=== PATIENT | male | born 1970 | race Hispanic/Latino ===

== ENCOUNTER 2016-06-20 01:34 | Inpatient (IN) | payer MEDICARE, MEDICAID ==
[2016-06-20] VITALS (11 sets, daily range): BP systolic 116–137; BP diastolic 69–91; PULSE 80–133; RESP 10–25; O2SAT 94–98
[~2016-06-20] VITALS: Ht 167.6 cm; Wt 96.6 kg
[~2016-06-20 01:34] MED LIST: AMIT100T2 PO; CITA40TA PO; DACL60TA PO; FURO40TA4 PO; HYDR-3797 PO; INSU100I13 SUBQ; LACT10SO27 PO; LEVO25TA5 PO; NOV100I SUBQ; OMEP20CA11 PO; OXYC10TA69 PO; PREG150C PO; PROP20TA5 PO; RIFA550T3 PO; SOFO400T PO; SPIR100T3 PO; TRIA15OI9 TRANSDERM
--- NOTE | 2016-06-20 01:44 | ED.REPORT ---
HPI-Trauma Multiple Date of Service Jun 20, 2016 ED Provider: Dr. Junito Olivo M.D. A 45 year old male with an extensive medical history including cirrhosis, hepatitis C, substance abuse, hypertension, and diabetes presents to the ED via wheel chair accompanied by his mother with head trauma after a fall down six stairs just prior to arrival. His mother was sleeping when she heard a loud crash and found him unconscious face down at the bottom of the stairs. On arrival in the room the patient is in a C-collar and minimally responsive. Nursing Notes Stated Complaint: FALL INJURY/ HEAD PAIN Nursing Notes Reviewed: Yes Allergies: Coded Allergies: No Known Allergies (Verified , 06/20/16) Scheduled Amitriptyline (Amitriptyline) 100 Mg Tablet 100 MG PO HS Furosemide (Furosemide) 40 Mg Tablet 40 MG PO DAILY Insulin Glargine (Lantus U100 Solostar Insulin Pen) 100 Unit/1 Ml Insuln.pen 30 UNIT SUBQ QAM Insulin Glargine (Lantus U100 Solostar Insulin Pen) 100 Unit/1 Ml Insuln.pen 28 UNIT SUBQ HS Lactulose (Lactulose) 10 Gm/15 Ml Solution 65 ML PO QID Levothyroxine (Levothyroxine) 25 Mcg Tablet 25 MCG PO DAILY Omeprazole (Omeprazole) 20 Mg Capsule.dr 20 MG PO DAILY Pregabalin (Lyrica) 150 Mg Capsule 150 MG PO HS Propranolol HCl (Propranolol HCl) 20 Mg Tablet 20 MG PO QAM Rifaximin (Xifaxan) 550 Mg Tablet 550 MG PO BID Spironolactone (Spironolactone) 100 Mg Tablet 100 MG PO QAM Scheduled PRN Citalopram Hydrobromide (Celexa) 40 Mg Tablet 40 MG PO DAILY PRN PRN For Anxiety Daclatasvir Dihydrochloride (Daklinza) 60 Mg Tablet 60 MG PO DAILY PRN PRN For Headache Hydroxyzine Pamoate (HydrOXYzine Pamoate) 25 Mg Capsule 25 MG PO QID PRN PRN For Itching Insulin Aspart (NovoLOG U100 Insulin Vial) 100 Unit/Ml Mdv 0-13 UNITS SUBQ TIDWM PRN PRN sliding scale Oxycodone ER (Oxycontin) 10 Mg Tab.er.12h 10 MG PO Q12 PRN PRN For Pain Sofosbuvir (Sovaldi) 400 Mg Tablet 400 MG PO DAILY PRN PRN For Headache Triamcinolone Acetonide (Triamcinolone Acetonide Ointment) 15 Gm Oint...g. 1 APPLIC TRANSDERM BID PRN PRN rash General Time Seen by Provider: 01:43 Chief Complaint Head pain/injury Hx Obtained From: Spouse Unable to Obtain Hx: Patient condition, Mental status Arrived By: Wheelchair Onset Occurred: Just prior to arrival Symptom Duration: Since onset Caused by: Fall down stairs Context: Occurred at: Home Associated with: Reports: Loss of consciousness... Pertinent Negative: Relieved by nothing Related History: Reports: Alcohol abuse, Drug abuse Immunizations: Unknown Recent Healthcare: No recent doctor visit Similar Sx Previous: No Past Medical History Past Medical History Cirrhosis of liver due to alcoholism Chronic hepatitis C---failed Harvoni currently on second line treatment Chronic encephalopathy Portal hypertensive gastropathy Ascites Diabetes mellitus-insulin dependent Esophageal varices Substance abuse-Meth Alcohol abuse Hypertension Hypothyroidism Thrombocytopenia Gastroesophageal reflux disease Retinal edema Chronic pain Lumbar spinal stenosis Allergies Depression Anxiety Disorder Circumcision Redundant prepuce and phimosis Balanoposthitis Past Surgical History Right hand surgery Family History Father-DM and [place] Smoking History Current Some Day Smoker Social History Alcohol Use: Denies alcohol use Other Social History: Good social support, Lives with parents Ambulatory Status Independent Review of Systems Unable to Obtain ROS Patient condition, Mental status Physical Exam Physical Exam Notes: Initial Vital Signs Vital Signs (First) Date Time Temp Pulse Resp B/P Pulse Ox O2 Delivery O2 Flow Rate FiO2 06/20/16 02:00 36.4 80 11 120/69 97 Room Air Initial VS: Reviewed Alertness: Positive: Responds to verb stimuli, Somnolent Head / Eyes: Normocephalic Trauma - General: Positive: Hematoma (Right frontal hairline) Neck: Atraumatic, Non-tender Trauma - Neck Specific: Positive: Immobilized - C Collar Respiratory / Chest: Breath sounds NL, Breath sounds = bilat, No respiratory distress Cardiovascular: Heart rate NL, Regular rhythm, Heart sounds NL Abdomen: Soft, Non-tender Trauma - General: Positive: Ecchymosis (Across abdomen, insulin injection sites ) Obese Mental Status: Positive: Responds to verbal stim, Somnolent ENT: Airway patent, Mucous membranes moist Trauma - General: Positive: Hematoma (Right lateral portion of mouth) Upper Extremity / MS: Neurologic intact, Vascular intact Trauma / Burn / Environmental: Positive: Ecchymosis (Over extensor of right upper extremity) Lower Extremity / Pelvis / MS: Neurologic intact, Vascular intact Bilateral chronic edema Skin: Warm, Dry Excoriations bilateral lower extremities Interpretation & Diagnostics Lab Results Interpretation Result Diagram: 06/20/16 0200 06/20/16 0555 Test 06/20/16 02:00 White Blood Count 4.5th/mm3 (3.8-10.1) Red Blood Count 4.84mil/mm3 (4.40-5.80) Hemoglobin 15.0g/dL (13.8-17.2) Hematocrit 41.8% (41.0-50.0) Mean Corpuscular Volume 86.4fL (81-100) Mean Corpuscular Hemoglobin 31.0pg (27.0-35.0) Mean Corpuscular Hemoglobin Concent 35.9% (32.0-37.0) Red Cell Distribution Width 13.7% (12.3-15.4) Platelet Count 41bil/L (150-400) Neutrophils (%) (Auto) 70.3% (40-74) Lymphocytes (%) (Auto) 16.9% (14-46) Monocytes (%) (Auto) 9.3% (4-12) Eosinophils (%) (Auto) 2.4% (0-5) Basophils (%) (Auto) 0.4% (0-3) Prothrombin Time 33.0sec (8.1-12.5) Prothromb Time International Ratio 3.02ratio Activated Partial Thromboplast Time 43.0sec (22.8-33.0) Magnesium Level 1.6mg/dL (1.6-2.6) Troponin T 0.010ug/L (0.0-0.011) Alcohol, Quantitative < 10mg/dL (0-10) ECG Interpretation ECG Interpretation: Sinus rhythm rate 82 Prolonged QT interval NSSTTW flattening diffusely Time: 02:35 Interpreted by: ED physician X-Ray Chest Interpretation Chest Xray Interpretation: Atelectasis at left base No pneumothorax No hemothorax Poor inspiration View: Portable, 1 view Interpretation / Wet Read by: Wet read ED physician CT Head Interpretation CONCLUSION: Right lateral frontal scalp hematoma. Transmitted to ED by Tulio Ibarra M.D. at 06/20/2016 - 3:27:16 AM PST Study: Head CT no contrast Interpretation / Wet Read by: Interpret - Radiologist CT Abd / Pelvis Interpretation IMPRESSION: Moderate displaced fractures posterior right eighth ninth and 10th ribs. Bilateral lung base subsegmental atelectasis. Cirrhosis with splenomegaly associated with gastric/splenic varices. Mild right nephrolithiasis. 2 punctate densities noted within the gastric antrum possibly representing ingested foreign bodies. Transmitted to ED by Tulio Ibarra M.D. at 06/20/2016 - 3:26:53 AM PST Study type: Abdominal CT no contrast Interpretation / Wet Read by: Interpret - Radiologist CT C-Spine Interpretation CONCLUSION: Normal CT of the cervical spine. Transmitted to ED by Tulio Ibarra M.D. at 06/20/2016 - 3:27:06 AM PST Study type: CT no contrast Interpretation / Wet Read by: Interpret - Radiologist Re-Eval/Medical Decision Med Decision/Clinical Course Med Decision/Clinical Course: 45-year-old cirrhotic patient presents after a fall with presumptive loss of consciousness, whether pre-or post is unclear. He arrives confused and minimally Verbal, and becomes combative after brief observation period. ammonia is again grossly elevated, double his baseline which is always elevated. CT is negative, but his underlying liver disease leaves him anticoagulated with an INR of three. He will require repeat scanning to exclude slow bleeding. Chest x-ray shows no pneumothorax or hemothorax, but CT of the abdomen shows contiguous rib fractures on the right in the eighth ninth and 10th ribs. He is admitted now for further evaluation and management, including bowel cleansing, repeat scan, serial neuro exam, and incentive spirometry for his rib fractures. Re-Evaluation/Progress #1: Time of Eval: 02:16 Patient Status: Condition improved Re-Evaluation/Progress Note: Patient is more awake but agitated and confused. Re-Evaluation/Progress #2: Time of Eval: 02:46 Patient Status: Condition unchanged Re-Evaluation/Progress Note: Patient rechecked. Re-Evaluation/Progress #3: Time of Eval: 03:51 Patient Status: Condition unchanged Re-Evaluation/Progress Note: Discussed with patient and his CT and lab results, diagnosis, and plan for admit. Patient and his agree with plan for care and all questions were addressed. Consultation : Referral / Consult Name: Jaleesa Delgado MD Consulted With: Hospitalist Call Returned at: 04:20 Hand Cloth Cutter: Agrees with eval, Agrees with plan, Accepts admit Counseled Regarding: Diagnosis, Lab results, Need for admission Discharge & Departure Shift Change Sign-Out Response to Therapy: Improved Impression: Primary Impression: Blunt head injury Encounter type: initial encounter Qualified Code: S09.8XXA - Other specified injuries of head, initial encounter Additional Impressions: Fracture of ribs, three Encounter type: initial encounter Fracture type: closed Laterality: right Qualified Code: S22.41XA - Multiple fractures of ribs, right side, initial encounter for closed fracture Cirrhosis Hepatic cirrhosis type: alcoholic cirrhosis Ascites presence: with ascites Qualified Code: K70.31 - Alcoholic cirrhosis of liver with ascites Fall down stairs Encounter type: initial encounter Qualified Code: W10.8XXA - Fall (on) (from ) other stairs and steps, initial encounter Increased ammonia level Disposition: ADMITTED TO HOSPITAL Discharge Condition All VS Reviewed: Yes Condition: Stable Referrals: Cara Mohr DO (PCP) Scribe Attestation Portions of this note were transcribed by Karen Avila. I, Dr. Olivo, personally performed the history, physical exam, and medical decision-making; I reviewed and confirmed the accuracy of the information in the transcribed note. Signed by: Danna Candelario, 06/20/2016, 05:21 copies to: Cara Mohr DO Head CT Imaging Patient Presents WITH: Loss of Conciousness Non Contrast CT Indicated For: Trauma - Clavicle & Up WITH Loss of Conciousness RF Statements: Risk factors reviewed Junito Olivo MD Jun 20, 2016 01:43 KAREN AVILA Jun 20, 2016 02:30 Consulted With: Hospitalist Call Returned at: 04:20 Hand Cloth Cutter: Agrees with eval, Agrees with plan, Accepts admit Counseled Regarding: Diagnosis, Lab results, Need for admission Discharge & Departure Impression: Primary Impression: Blunt head injury Encounter type: initial encounter Qualified Code: S09.8XXA - Other specified injuries of head, initial encounter Additional Impressions: Fracture of ribs, three Encounter type: initial encounter Fracture type: closed Laterality: right Qualified Code: S22.41XA - Multiple fractures of ribs, right side, initial encounter for closed fracture Cirrhosis Hepatic cirrhosis type: alcoholic cirrhosis Ascites presence: with ascites Qualified Code: K70.31 - Alcoholic cirrhosis of liver with ascites Fall down stairs Encounter type: initial encounter Qualified Code: W10.8XXA - Fall (on) (from ) other stairs and steps, initial encounter Disposition: ADMITTED TO HOSPITAL Discharge Condition All VS Reviewed: Yes Condition: Stable Referrals: Cara Mohr DO (PCP) Pradeepibanderson Attestation Portions of this note were transcribed by Karen Avila. I, Dr. Olivo, personally performed the history, physical exam, and medical decision-making; I reviewed and confirmed the accuracy of the information in the transcribed note. Signed by: Danna Candelario, 06/20/2016, 05:21 copies to: Cara Mohr DO Head CT Imaging Patient Presents WITH: Loss of Conciousness Non Contrast CT Indicated For: Trauma - Clavicle & Up WITH Loss of Conciousness RF Statements: Risk factors reviewed Junito Olivo MD Jun 20, 2016 01:43 KAREN AVILA Jun 20, 2016 02:30
[2016-06-20] MEDS ORDERED: Ketamine 10 mg/mL 20 mL Inj ONE (02:04)
[2016-06-20] MEDS ORDERED: Ketamine 10 mg/mL 20 mL Inj IV ONE ×2 (02:10→04:10)
[2016-06-20 02:14] LABS: BASOPHILS % (AUTO) 0.4 % (0-3); EOSINOPHILS % (AUTO) 2.4 % (0-5); MONOCYTES % (AUTO) 9.3 % (4-12); Mean Corpuscular Volume 86.4 fL (81-100); NEUTROPHILS % (AUTO) 70.3 % (40-74); Platelet Count 41 bil/L (150-400)
[2016-06-20 02:30] LABS: INR 3.02 ratio
[2016-06-20 02:45] LABS: TROPONIN T 0.01 ug/L (0.0-0.011)
[2016-06-20 02:48] LABS: Magnesium 1.6 mg/dL (1.6-2.6)
[2016-06-20] MEDS ORDERED: Phytonadione (Adult) 10 MG in Dextrose 5%-Pha MIX 50 ML IV ONE (04:20)
[2016-06-20] MEDS ORDERED: PHYTONADIONE IV ONE (04:31)
[2016-06-20] MEDS ORDERED: DEXTROSE 5% IV ONE (04:31)
[2016-06-20] MEDS ORDERED: Ondansetron 2 mg/mL 2 mL Inj IVPUSH PRN (04:45)
--- NOTE | 2016-06-20 05:03 | PCM.HPMED ---
Subjective Date of Service Jun 20, 2016 Primary Provider: Admitting Physician: Jaleesa Delgado MD Primary Care Physician: Cara Mohr DO Attending Physician: Jaleesa Delgado MD Admit Status: From the Emergency Department, Full Admit, [facility] Telemetry Chief Complaint: Fell down flight of stairs History of Present Illness: This is a 45-year-old male who has a history of end-stage liver disease secondary to hepatitis C and EtOH abuse. He also has a history of chronic hepatic encephalopathy. Tonight fell down a flight of stairs and was brought in. He does have a abrasion on his head and did have CT scanning of head chest abdomen and pelvis with the significance of right sided 8,9 and 10 rib fractures. He also was found to have significant elevated ammonia level. Is not clear whether he has been taking his medications. I am unable to get history from him and there is no one else at bedside. He has a did have a CT of C-spine which was negative. As mentioned other history is unobtainable. Review of Systems: Unobtainable Allergies Coded Allergies: No Known Allergies (Verified , 06/20/16) Home Medications Scheduled Amitriptyline (Amitriptyline) 100 Mg Tablet 100 MG PO HS Furosemide (Furosemide) 40 Mg Tablet 40 MG PO DAILY Insulin Glargine (Lantus U100 Solostar Insulin Pen) 100 Unit/1 Ml Insuln.pen 30 UNIT SUBQ QAM Insulin Glargine (Lantus U100 Solostar Insulin Pen) 100 Unit/1 Ml Insuln.pen 28 UNIT SUBQ HS Lactulose (Lactulose) 10 Gm/15 Ml Solution 65 ML PO QID Levothyroxine (Levothyroxine) 25 Mcg Tablet 25 MCG PO DAILY Omeprazole (Omeprazole) 20 Mg Capsule.dr 20 MG PO DAILY Pregabalin (Lyrica) 150 Mg Capsule 150 MG PO HS Propranolol HCl (Propranolol HCl) 20 Mg Tablet 20 MG PO QAM Rifaximin (Xifaxan) 550 Mg Tablet 550 MG PO BID Spironolactone (Spironolactone) 100 Mg Tablet 100 MG PO QAM Scheduled PRN Citalopram Hydrobromide (Celexa) 40 Mg Tablet 40 MG PO DAILY PRN PRN For Anxiety Daclatasvir Dihydrochloride (Daklinza) 60 Mg Tablet 60 MG PO DAILY PRN PRN For Headache Hydroxyzine Pamoate (HydrOXYzine Pamoate) 25 Mg Capsule 25 MG PO QID PRN PRN For Itching Insulin Aspart (NovoLOG U100 Insulin Vial) 100 Unit/Ml Mdv 0-13 UNITS SUBQ TIDWM PRN PRN sliding scale Oxycodone ER (Oxycontin) 10 Mg Tab.er.12h 10 MG PO Q12 PRN PRN For Pain Sofosbuvir (Sovaldi) 400 Mg Tablet 400 MG PO DAILY PRN PRN For Headache Triamcinolone Acetonide (Triamcinolone Acetonide Ointment) 15 Gm Oint...g. 1 APPLIC TRANSDERM BID PRN PRN rash PMH Past Medical History Cirrhosis of liver due to alcoholism Chronic hepatitis C---failed Harvoni currently on second line treatment Chronic encephalopathy Portal hypertensive gastropathy Ascites Diabetes mellitus-insulin dependent Esophageal varices Substance abuse-Meth Alcohol abuse Hypertension Hypothyroidism Thrombocytopenia Gastroesophageal reflux disease Retinal edema Chronic pain Lumbar spinal stenosis Allergies Depression Anxiety Disorder Circumcision Redundant prepuce and phimosis Balanoposthitis Chronic pain Past Surgical History Right hand Family History Unobtainable Social History Hx Alcohol Use: Yes (unable to ask if pt is currently drinking) Hx Substance Use: Yes (history of meth use, unable to ask if currently using) Hx Tobacco Use: Yes (unable to ask about amount of smoking) Smoking Status: Current Some Day Smoker Living Arrangement: with Family Exam Vital Signs Vital Sign - Last Date Time Temp Pulse Resp B/P Pulse Ox O2 Delivery O2 Flow Rate FiO2 06/20/16 03:30 83 10 126/70 98 Room Air 06/20/16 02:00 36.4 Exam Constitutional: Drowsy difficult to arouse as was given ketamine in the emergency room Head: Does have hematoma in the lateral portion of his mouth and right frontal hairline hematoma Eyes: PERRLA DC EOMI Neck: No adenopathy Mouth: No lesions Neck no adenopathy Chest clear to auscultation Cor: Regular rate and rhythm S1-S2 Abdomen soft nontender bowel sounds present Extremities exam: Trace bilateral pedal edema with chronic venous stasis changes skin no rashes Psych unable to assess Neuro: Arouses to pain moves all extremities equally Lab and Diagnostics Labs Laboratory Tests 72 Hours Test 06/20/16 02:00 White Blood Count 4.5th/mm3 (3.8-10.1) Red Blood Count 4.84mil/mm3 (4.40-5.80) Hemoglobin 15.0g/dL (13.8-17.2) Hematocrit 41.8% (41.0-50.0) Mean Corpuscular Volume 86.4fL (81-100) Mean Corpuscular Hemoglobin 31.0pg (27.0-35.0) Mean Corpuscular Hemoglobin Concent 35.9% (32.0-37.0) Red Cell Distribution Width 13.7% (12.3-15.4) Platelet Count 41bil/L (150-400) Neutrophils (%) (Auto) 70.3% (40-74) Lymphocytes (%) (Auto) 16.9% (14-46) Monocytes (%) (Auto) 9.3% (4-12) Eosinophils (%) (Auto) 2.4% (0-5) Basophils (%) (Auto) 0.4% (0-3) Prothrombin Time 33.0sec (8.1-12.5) Prothromb Time International Ratio 3.02ratio Activated Partial Thromboplast Time 43.0sec (22.8-33.0) Sodium Level 137mEq/L (134-144) Potassium Level 3.9mEq/L (3.5-5.2) Chloride Level 102mEq/L (97-108) Carbon Dioxide Level 25mmol/L (18-29) Blood Urea Nitrogen 7mg/dL (6-24) Creatinine 0.34mg/dL (0.76-1.27) Estimat Glomerular Filtration Rate 298mL/min (>59) Glucose Level 179mg/dL (60-99) Calcium Level 8.7mg/dL (8.5-10.1) Magnesium Level 1.6mg/dL (1.6-2.6) Total Bilirubin 3.3mg/dL (0.0-1.2) Aspartate Amino Transf (AST/SGOT) 53U/L (0-50) Alanine Aminotransferase (ALT/SGPT) 56U/L (0-44) Alkaline Phosphatase 186U/L (25-150) Ammonia 323ug/dL (18-53) Troponin T 0.010ug/L (0.0-0.011) Total Protein 6.7g/dL (6.4-8.4) Albumin 3.3g/dL (3.4-5.0) Alcohol, Quantitative < 10mg/dL (0-10) UA micral urine culture if indicated and urine drug screen is pending at the time this dictation Result Diagram: 06/20/16 0200 06/20/16199 X-Rays, CTs and MRIs Radiology readings are pending for CT of head neck chest abdomen pelvis 12-lead ECG Sinus at a rate of 82 QTC is 5.Q in 3 and aVF Assessment & Plan # Fall down flight of stairs with multiple rib fractures, acute, present on admission Repeat CT of head without contrast in [address] Repeat chest x-ray if his respiratory symptoms Neuro checks every 4 as did have head trauma # Acute on chronic hepatic encephalopathy, present on admission Patient is unable to take by mouth now so we will give lactulose enemas every 4 hours and check every 8 hour ammonia levels # Elevated PT PTT, present on admission Secondary to hepatic cirrhosis Patient to get vitamin K in the ER # End stage liver disease, present on admission, chronic Further recommendations per primary care provider and/or gastroenterology specialist # History of methamphetamine and alcohol abuse Alcohol level checked and is 0. It is not clear whether he is continuing to drink alcohol Check urine drug screen # DVT prophylaxis SCDs Anticoagulation is contraindicated given recent fall and the fact that he has elevated PT PTT secondary to end-stage liver disease # CODE STATUS Per previous record patient is full code Pain Evaluation: Adequate Pain Control VTE Prophylaxis Indicated: Contraindicated Resuscitation Status: CPR: Attempt Resuscitation Time spent Time spent 60 minutes Jaleesa Delgado MD Jun 20, 2016 05:03
[2016-06-20] MEDS: 0.9% Sodium Chloride 1,000 ML IV SCH ×2 (05:55→15:46)
--- NOTE | 2016-06-20 06:07 | NUR ---
ADMIT Pt brought onto floor via gurney at 0530. Report received from Thea Hernandez RN in ED. Unable to oriented pt due to condition. Will have dayshift follow up, no family currently available. No belongings with pt. Pt unable to answer questions and drops in and out of sleep. Pt has clutching and moaning pain but unable to categorize level. Other than pain, no apparent s/sx of distress. Continuing to monitor.
[2016-06-20] MEDS: Lactulose 10 Gm/15 mL 473 mL Solution RECTAL SCH ×5 (06:18→21:53)
[2016-06-20] MEDS ORDERED: HYDROmorphone 1 mg/mL Inj IVPUSH PRN (07:40)
--- NOTE | 2016-06-20 08:35 | DRSVH ---
PROCEDURE: CT CERVICAL SPINE WITHOUT CONTRAST ([id number]) INDICATIONS: stair fall, cirrhosis TECHNIQUE: Noncontrast 3 mm thick sections acquired from the skull base to the T4 level. Sagittal and coronal r eformats were then constructed. For radiation dose reduction, the following was used: automated exp osure control, adjustment of mA and/or kV according to patient size. COMPARISON: [facility], CT, C-SPINE W/O CONTRAST, 01/07/2014, 20:08. FINDINGS: Image quality: Excellent. Bones: No fractures or dislocations. Visualized superior ribs are intact. Soft tissues: Prevertebral soft tissues are normal in thickness. No paravertebral hematomas. No ap ical pneumothoraces. IMPRESSION: No visualized fracture or dislocation. Dictated by: Lynette Palma M.D. on 06/20/2016 at 8:33 Approved by: Lynette Palma M.D. on 06/20/2016 at 8:33
--- NOTE | 2016-06-20 08:37 | DRSVH ---
PROCEDURE: CT BRAIN WITHOUT CONTRAST ([id number]) INDICATIONS: stair fall, cirrhosis TECHNIQUE: Noncontrast 4.5 mm thick angled axial sections acquired from the foramen magnum to the vertex, with c oronal reformats. COMPARISON: [facility], CT, CT BRAIN WO CON, 07/08/2015, 16:16. FINDINGS: Image quality: Excellent. CSF spaces: Basal cisterns are patent. No extra-axial fluid collections. Ventricles are normal in size and shape. Brain: No midline shift. No intracranial masses or hemorrhage. Nash-white matter interface is norm al. Skull and face: Calvarium and visualized facial bones are intact, without suspicious lesions. Right frontal scalp hematoma. Sinuses: Visualized sinuses and mastoids are clear. IMPRESSION: 1. No acute intracranial process. 2. Right frontal scalp hematoma. Dictated by: Lynette Palma M.D. on 06/20/2016 at 8:35 Approved by: Lynette Palma M.D. on 06/20/2016 at 8:35
--- NOTE | 2016-06-20 08:41 | DRSVH ---
PROCEDURE: X-RAY CHEST ONE VIEW, PORTABLE ([id number]) INDICATIONS: fall from stairs TECHNIQUE: One view of the chest was acquired. COMPARISON: [facility], CR, XR CHEST 1VW (PORTABLE), 07/08/2015, 14:26. [facility], CR, CHEST 1VW (PORTABLE), 01/07/2014, 18:48. [facility], CR, CHEST 1VW (PORTABLE) , 08/20/2013, 11:12. FINDINGS: Surgical changes and devices: None. Lungs and pleura: No pleural effusions or pneumothorax. No change in left basilar scarring. Mediastinum: Mediastinal contours appear normal. Heart size is normal. Bones and chest wall: No suspicious bony lesions. Overlying soft tissues appear unremarkable. IMPRESSION: No acute process. Concordant with preliminary interpretation. Dictated by: Jesse Cao M.D. on 06/20/2016 at 8:38 Approved by: Jesse Cao M.D. on 06/20/2016 at 8:38
--- NOTE | 2016-06-20 08:48 | DRSVH ---
PROCEDURE: CT ABDOMEN AND PELVIS WITH CONTRAST TRAUMA (PNL [id number]) INDICATIONS: stair fall, cirrhosis TECHNIQUE: After the administration of intravenous contrast, 5 mm thick sections acquired from the diaphragms to the symphysis. 5 mm thick coronal and sagittal reformats were acquired. Optional 10-minute delayed imaging may be performed from the kidneys to the bladder. For radiation dose reduction, the followi ng was used: automated exposure control, adjustment of mA and/or kV according to patient size. COMPARISON: [facility], CT, CT ABD PELVIS W CON, 05/16/2016, 0:39. [facility], CT, ABD/PELVIS W/CON TRAUMA (PNL), 01/07/2014, 20:08. FINDINGS: Image quality: Excellent. ABDOMEN: Lung bases: Bibasilar atelectasis. Heart size is normal. No pericardial effusion. Right 8th, 9th and 10th rib fractures are present. No basal pleural effusions or pneumothorax. Solid organs: Liver is shrunken and cirrhotic in appearance. The spleen is enlarged. Splenic and ga stric varices are present. Gallbladder is unremarkable. Biliary system is non-dilated. Pancreas en hances normally, without transection. No adrenal hematomas. Both kidneys enhance normally, without hydronephrosis or lacerations. Nonobstructing right punctate renal calculus. Peritoneum and bowel: No free fluid or air. Unenhanced bowel loops demonstrate normal wall thicknes s and caliber. Nodes and vessels: No retroperitoneal or mesenteric adenopathy. Aorta and inferior vena cava are no rmal in size and enhancement. Miscellaneous: No ventral hernias. PELVIS: Genitourinary: Bladder wall thickness is normal. Miscellaneous: No inguinal hernias or adenopathy. Bones: Pelvic ring and hip joints appear intact. No vertebral compression fractures. IMPRESSION: 1. Right posterior right 8th-10th rib fractures. 2. Cirrhosis with splenomegaly and varices consistent with portal venous hypertension. 3. Nonobstructing right nephrolithasis. Dictated by: Lynette Palma M.D. on 06/20/2016 at 8:46 Approved by: Lynette Palma M.D. on 06/20/2016 at 8:46
[2016-06-20] MEDS: HYDROmorphone 1 mg/mL Inj IVPUSH PRN ×3 (12:27→21:03)
[2016-06-20 14:07] LABS: APPEARANCE,URINE HAZY (CLEAR,HAZY); COLOR,URINE DARK YELLOW (YELLOW); OCCULT BLOOD,URINE LARGE (NEGATIVE); PH,URINE 6.5 (5.0-8.0)
--- NOTE | 2016-06-20 14:58 | DRSVH ---
PROCEDURE: CT BRAIN WITHOUT CONTRAST ([id number]) INDICATIONS: head trauma TECHNIQUE: Noncontrast 4.5 mm thick angled axial sections acquired from the foramen magnum to the vertex, with c oronal reformats. COMPARISON: [facility], CT, CT BRAIN WO CON, 06/20/2016, 2:54. FINDINGS: Image quality: This is a markedly limited study due to patient motion artifact. CSF spaces: Basal cisterns are patent. No extra-axial fluid collections. Ventricles are normal in size and shape. Brain: No midline shift. No intracranial masses or hemorrhage. Nash-white matter interface is norm al. Skull and face: Soft tissue swelling and subgaleal hematoma overlies the right frontal bone. Calvari um and visualized facial bones are intact, without suspicious lesions. Sinuses: Visualized sinuses and mastoids are clear. IMPRESSION: Markedly limited study. No acute intracranial findings. Right frontal subgaleal hematoma. Dictated by: Caro Ivory M.D. on 06/20/2016 at 14:56 Approved by: Caro Ivory M.D. on 06/20/2016 at 14:56
[2016-06-20] MEDS ORDERED: LORazepam 1 mg Tablet PO PRN (15:30)
--- NOTE | 2016-06-20 15:46 | NUR ---
Social Work-initial assessment: Data:See initial assessment. Pt is a 45 y/o male who was admitted on 06/20/16 for GLF per H&P. Pt's insurance is [employer] and [employer] and PCP is Dolores Mohr MD. EMR reviewed. CARTER met with pt and mother Yuli [phone] at bedside to discuss discharge planning, SW role explained. Pt resides at home with his mother who provides care for pt home. Pt has no HH or SNF history. Pt has no fpc care insurance and no VA benefits. SW discussed DPOA/Advanced directive, mother states they have completed this, SW encouraged a copy to be brought into the hospital. Pt's mother is RUDI caregiver and his CM is Felisa Ramachandran, updated clinicals faxed. Pt has 145 hours a month. Pt does not drive and uses a fww at baseline. Pt's mother does not anticipate any discharge needs. Pt's family to provide transport home. SW provided phone number and plan on white board in room. SW will continue to follow. Assessment:Pt who is independent at baseline. Plan:Pt to discharge home when medically stable via POV. Pt's mother is RUDI caregiver. No anticipated discharge needs. SW will continue to follow if needs arise. LATA Mendes Addendum: 06/20/16 at 1601 by JIAN ARNOLD SS Amended: Links added.
--- NOTE | 2016-06-20 17:16 | NUR ---
Lactulose Patient has rectal lactulose Q4 hours. Lactulose was administered late due to pharmacy needing to obtain from another hospital. Patient has had several Large loose stools. Patient was not able to talk but a word or two in the morning and this afternoon patient can speak short sentences. Patient is more alert and talkative this afternoon and continues to be in pain.
--- NOTE | 2016-06-20 22:00 | NUR ---
Lala Catheter: P: Pt unable to void per urinal. I: Bladder scan performed indicating greater than [address] Naylor notified and new order obtained to place lala catheter. E: Lala catheter placed without complication. Deb colored urine emptied.
[2016-06-21] VITALS (10 sets, daily range): BP systolic 111–153; BP diastolic 72–85; PULSE 101–131; RESP 18–24; O2SAT 94–96
[2016-06-21] MEDS: Lactulose 10 Gm/15 mL 473 mL Solution RECTAL SCH ×6 (00:55→21:45)
[2016-06-21] MEDS ORDERED: Glucose 40% Oral Gel 15 Gm Tube PO PRN (01:25)
[2016-06-21] MEDS ORDERED: Labetalol 5 mg/mL 4 mL Inj IVPUSH ONE (01:35)
--- NOTE | 2016-06-21 02:00 | NUR ---
Fecal Management System: Due to frequent amount of lactulose enemas and stooling. A Fecal Management System was ordered per Dr. Naylor and placed to protect the pt's skin integrity; 40 mls of water was used to inflate the FMS balloon.
[2016-06-21] MEDS: Insulin GLARgine 100 Unit/mL Syringe SUBQ SCH ×2 (02:26→22:06)
[2016-06-21] MEDS: Insulin LISPRO 300 Unit/3 mL Inj SUBQ SCH ×5 (02:27→22:07)
[2016-06-21] MEDS: 0.9% Sodium Chloride 1,000 ML IV SCH ×3 (02:30→22:07)
--- NOTE | 2016-06-21 02:30 | NUR ---
Hyperglycemia: P: Initial blood glucose checked last night was 276. I: Dr. Naylor notified and new orders obtained for sliding scale lispro and scheduled Lantus. E: Doses administered. Will cont. to monitor.
--- NOTE | 2016-06-21 03:00 | NUR ---
Tachycardia: P: HR has remained in the 130s after pt calmed. I: Dr. Naylor notified. New ordered obtained for 20 mg of IV labetalol. E: IV labetalol effective in lowering pt's HR into the low 100s/ST.
[2016-06-21] MEDS: HYDROmorphone 1 mg/mL Inj IVPUSH PRN ×2 (07:38→13:10)
[2016-06-21 08:09] LABS: BASOPHILS % (AUTO) 0.1 % (0-3); EOSINOPHILS % (AUTO) 0 % (0-5); MONOCYTES % (AUTO) 9.7 % (4-12); Mean Corpuscular Volume 87.6 fL (81-100); NEUTROPHILS % (AUTO) 84.8 % (40-74)
[2016-06-21 08:16] LABS: Platelet Count 35 bil/L (150-400)
--- NOTE | 2016-06-21 08:19 | NUR ---
Critical Lab Cassie called with PLT 35, Dr Curtis paged at [phone], pending.
--- NOTE | 2016-06-21 09:49 | PCM.PNMED ---
Subjective Date of Service Jun 20, 2016 Subjective Patient is deep asleep, per nurse he had just received Dilaudid 1mg IV. Prior to that he was able to communicate with the nurse and he told her he was in lots of pain. Exam Vital Signs Vital Sign - Last Date Time Temp Pulse Resp B/P Pulse Ox O2 Delivery O2 Flow Rate FiO2 06/20/16 06:33 36.5 91 18 121/77 94 Room Air Exam Constitutional: Drowsy difficult to arouse Head: Hematoma in the lateral portion of his mouth and right frontal hairline hematoma Eyes: PERRL Neck: No adenopathy Mouth: No lesions on Heart: Regular rate and rhythm S1-S2 Lungs: Clear to auscultation Abdomen: soft nontender bowel sounds present Extremities exam: Bilateral pitting edema with chronic venous stasis changes Psych: Unable to assess Neuro: Arouses to pain moves all extremities equally IVs and Medications IV Fluids IVF NS 100 mls/hr Lab and Diagnostics Result Diagram: 06/20/16 0200 06/20/16 0555 X-Rays, CTs and MRIs PROCEDURE: CT ABDOMEN AND PELVIS WITH CONTRAST TRAUMA (PNL [id number]) ABDOMEN: Lung bases: Bibasilar atelectasis. Heart size is normal. No pericardial effusion. Right 8th, 9th and 10th rib fractures are present. No basal pleural effusions or pneumothorax. Solid organs: Liver is shrunken and cirrhotic in appearance. The spleen is enlarged. Splenic and gastric varices are present. Gallbladder is unremarkable. Biliary system is non-dilated. Pancreas enhances normally, without transection. No adrenal hematomas. Both kidneys enhance normally, without hydronephrosis or lacerations. Nonobstructing right punctate renal calculus. Peritoneum and bowel: No free fluid or air. Unenhanced bowel loops demonstrate normal wall thickness and caliber. Nodes and vessels: No retroperitoneal or mesenteric adenopathy. Aorta and inferior vena cava are normal in size and enhancement. Miscellaneous: No ventral hernias. PELVIS: Genitourinary: Bladder wall thickness is normal. Miscellaneous: No inguinal hernias or adenopathy. Bones: Pelvic ring and hip joints appear intact. No vertebral compression fractures. IMPRESSION: 1. Right posterior right 8th-10th rib fractures. 2. Cirrhosis with splenomegaly and varices consistent with portal venous hypertension. 3. Nonobstructing right nephrolithasis. Dictated by: Lynette Palma M.D. on 06/20/2016 at 8:46 Approved by: Lynette Palma M.D. on 06/20/2016 at 8:46 PROCEDURE: CT BRAIN WITHOUT CONTRAST ([id number]) INDICATIONS: stair fall, cirrhosis IMPRESSION: 1. No acute intracranial process. 2. Right frontal scalp hematoma. Dictated by: Lynette Palma M.D. on 06/20/2016 at 8:35 Approved by: Lynette Palma M.D. on 06/20/2016 at 8:35 PROCEDURE: CT CERVICAL SPINE WITHOUT CONTRAST ([id number]) INDICATIONS: stair fall, cirrhosis Bones: No fractures or dislocations. Visualized superior ribs are intact. Soft tissues: Prevertebral soft tissues are normal in thickness. No paravertebral hematomas. No apical pneumothoraces. IMPRESSION: No visualized fracture or dislocation. Dictated by: Lynette Palma M.D. on 06/20/2016 at 8:33 Approved by: Lynette Palma M.D. on 06/20/2016 at 8:33 PROCEDURE: X-RAY CHEST ONE VIEW, PORTABLE ([id number]) INDICATIONS: fall from stairs FINDINGS: Surgical changes and devices: None. Lungs and pleura: No pleural effusions or pneumothorax. No change in left basilar scarring. Mediastinum: Mediastinal contours appear normal. Heart size is normal. Bones and chest wall: No suspicious bony lesions. Overlying soft tissues appear unremarkable. IMPRESSION: No acute process. Concordant with preliminary interpretation. Dictated by: Jesse Cao M.D. on 06/20/2016 at 8:38 Approved by: Jesse Cao M.D. on 06/20/2016 at 8:38 PROCEDURE: CT BRAIN WITHOUT CONTRAST ([id number]) INDICATIONS: head trauma FINDINGS: Image quality: This is a markedly limited study due to patient motion artifact. CSF spaces: Basal cisterns are patent. No extra-axial fluid collections. Ventricles are normal in size and shape. Brain: No midline shift. No intracranial masses or hemorrhage. Nash-white matter interface is normal. Skull and face: Soft tissue swelling and subgaleal hematoma overlies the right frontal bone. Calvarium and visualized facial bones are intact, without suspicious lesions. Sinuses: Visualized sinuses and mastoids are clear. IMPRESSION: Markedly limited study. No acute intracranial findings. Right frontal subgaleal hematoma. Dictated by: Caro Ivory M.D. on 06/20/2016 at 14:56 Approved by: Caro Ivory M.D. on 06/20/2016 at 14:56 12-lead ECG Sinus at a rate of 82 QTC is 5.Q in 3 and aVF Assessment & Plan # Fall down flight of stairs with multiple rib fractures, acute, present on admission - Repeat CT of head without contrast in [address] - Repeat chest x-ray if his respiratory symptoms - Neuro checks every 4 as did have head trauma # Acute on chronic hepatic encephalopathy, present on admission - Patient is unable to take by mouth now so we will give lactulose enemas every 4 hours and check every 8 hour ammonia levels # Elevated PT PTT, present on admission - Secondary to hepatic cirrhosis - Patient to get vitamin K in the ER # End stage liver disease, present on admission, chronic - Further recommendations per primary care provider and/or gastroenterology specialist # History of methamphetamine and alcohol abuse - Alcohol level checked and is 0. It is not clear whether he is continuing to drink alcohol - Check urine drug screen # DVT prophylaxis SCDs Anticoagulation is contraindicated given recent fall and the fact that he has elevated PT PTT secondary to end-stage liver disease # CODE STATUS Per previous record patient is full code Resuscitation Status: CPR: Attempt Resuscitation Attending Statement The patient was seen and examined together with Dr. Zuleta on 06/20/2016 and I agree with the history, exam and plan as outlined in the note above. CORINA ZULETA DO Jun 20, 2016 09:19 Eric Curtis MD Jun 21, 2016 09:49
--- NOTE | 2016-06-21 11:57 | NUR ---
Palliative Care Palliative Care received order from Dr Aliyah Rojo 06/20/16 (late in day) to assist with goals of care. Patient is a 45 year old male with history of end-stage liver disease secondary to hepatitis C and EtOH abuse. He also has a history of chronic hepatic encephalopathy. He was admitted 06/20/16 for care of multiple rib fractures after falling down a flight of stairs. Palliative Care MD saw patient for goals of care discussion in 08/2013. Patient lives with his mother. Ruchi Kalin (sister) [phone] Yuli Riley (mom) [phone] Palliative Care to follow. Rani Matute
--- NOTE | 2016-06-21 13:28 | PCM.PALLBR ---
Palliative Brief Note Date of Service Jun 21, 2016 . Palliative medicine consultation requested by medical team to assist patient and family and determination of goals of care. 45-year-old male with history of end-stage liver disease secondary to alcoholism and hepatitis C, admitted to hospital after fall with encephalopathy. Prior to visiting patient, reviewed his records in the EMR in detail and spoke with his bedside nurse. On my arrival in the room, patient is lying in bed, occasionally grimacing and moaning. Unable to provide information regarding localization of discomfort. Does not answer any questions appropriately or coherently. Vital signs noted. Skin is warm and dry. Head and neck exam without acute focal findings. Oropharynx with dry mucous membranes. Neck without masses or adenopathy. Lungs clear anterolaterally, heart sounds regular, abdomen rounded, soft, without peritoneal signs, rigidity or guarding. Possible mild bilateral lower quadrant tenderness though inconsistent. Lower extremities with +1 edema at ankles. Patient seen to move all extremities spontaneously. I called and spoke with his mother Yuli and then brother Carlos. Reviewed his past medical history as well as events leading up to this admission, his current diagnoses and treatment. In particular, talked about evidence of progressive hepatic failure with elevated ammonia, elevated INR, metabolic acidosis, etc. Patient's mother was tearful but his brother was [id number] and seemed to understand and accept the situation. Answered questions they both had and agreed to talk further when they return to the hospital. Did review advanced directive questions with them over the telephone. At this time patient remains full code/full aggressive treatment but the family will now begin to talk about changing that. In this regard, the patient's brother said that he would take the lead discussing these issues now at home with his mother and other family members, and then we would plan on reviewing them further when the family returns to the hospital either later today or tomorrow. Therefore, for now continue care per medical team with full CODE STATUS as before, but anticipate further discussions with the family as soon as possible regarding these issues. Full palliative note to follow once I am able to meet with the patient's family later today or tomorrow. Total 45 minutes spent thus far today with patient and family, greater than 50% [id number] or in conversation by phone as outlined above, reviewing medical status and discussing advanced directive issues. Chaz Constantino MD Jun 21, 2016 13:28
--- NOTE | 2016-06-21 15:05 | NUR ---
spiritual care: pt request relayed request for manager operations and procurement visit per family's request. Conversational prayer. Pt moaning in pain, agitated. Nursing staff and family trying to comfort.
[2016-06-21] MEDS ORDERED: MeTOProlol 1 mg/mL 5 mL Inj IVPUSH STA (15:53)
[2016-06-21] MEDS ORDERED: HYDROmorphone 0.5 mg/0.5 mL iSecure Syringe IVPUSH PRN (16:20)
--- NOTE | 2016-06-21 16:37 | PCM.PNMED ---
Subjective Date of Service Jun 21, 2016 Subjective Overnight: lala cath, fecal management system, Labetalol 20 mg IV push x 1, HR in 130's. Pt moaning in pain, agitated. Opens eyes sometime but does not converse. Exam Vital Signs Vital Sign - Last Date Time Temp Pulse Resp B/P Pulse Ox O2 Delivery O2 Flow Rate FiO2 06/21/16 13:03 36.9 113 24 153/85 96 Room Air Intake and Output 06/20/16 06/20/16 06/21/16 Cumulative From/Thru 15:00 23:00 07:00 06/20/16 04:02 - 06/21/16 06:15 Intake Total 1150 ml 2261 ml 3411 ml Output Total 700 ml 700 ml 1400 ml Balance 450 ml 1561 ml 2011 ml Intake Oral 0 ml 0 ml 0 ml IV Total 1150 ml 2261 ml 3411 ml Output Urine Total 700 ml 700 ml 1400 ml # Bowel Movements 4 4 Exam Constitutional: moaning, hard to arouse Head: Hematoma in the lateral portion of his mouth and right frontal hairline hematoma Eyes: PERRL Neck: No adenopathy Heart: Regular rate and rhythm S1-S2, tachycardic Lungs: Clear to auscultation Abdomen: soft nontender bowel sounds present : Lala cath and FMS in place Extremities exam: Bilateral pitting edema with chronic venous stasis changes Psych: Unable to assess Neuro: Arouses to pain moves all extremities equally IVs and Medications IV Fluids IVF NS @ 100 mls/hr Medications Reviewed: Medications were reviewed in detail (Rifaximin 550 mg PO bid ordered but pt is NPO at this time. Per pharmacy, there is no replacement, however it can be given through PEG tube ) Lab and Diagnostics Result Diagram: 06/21/16 0740 06/21/16 0740 X-Rays, CTs and MRIs PROCEDURE: CT ABDOMEN AND PELVIS WITH CONTRAST TRAUMA (PNL 0005) ABDOMEN: Lung bases: Bibasilar atelectasis. Heart size is normal. No pericardial effusion. Right 8th, 9th and 10th rib fractures are present. No basal pleural effusions or pneumothorax. Solid organs: Liver is shrunken and cirrhotic in appearance. The spleen is enlarged. Splenic and gastric varices are present. Gallbladder is unremarkable. Biliary system is non-dilated. Pancreas enhances normally, without transection. No adrenal hematomas. Both kidneys enhance normally, without hydronephrosis or lacerations. Nonobstructing right punctate renal calculus. Peritoneum and bowel: No free fluid or air. Unenhanced bowel loops demonstrate normal wall thickness and caliber. Nodes and vessels: No retroperitoneal or mesenteric adenopathy. Aorta and inferior vena cava are normal in size and enhancement. Miscellaneous: No ventral hernias. PELVIS: Genitourinary: Bladder wall thickness is normal. Miscellaneous: No inguinal hernias or adenopathy. Bones: Pelvic ring and hip joints appear intact. No vertebral compression fractures. IMPRESSION: 1. Right posterior right 8th-10th rib fractures. 2. Cirrhosis with splenomegaly and varices consistent with portal venous hypertension. 3. Nonobstructing right nephrolithasis. Dictated by: Lynette Palma M.D. on 06/20/2016 at 8:46 Approved by: Lynette Palma M.D. on 06/20/2016 at 8:46 PROCEDURE: CT BRAIN WITHOUT CONTRAST ([id number]) INDICATIONS: stair fall, cirrhosis IMPRESSION: 1. No acute intracranial process. 2. Right frontal scalp hematoma. Dictated by: Lynette Palma M.D. on 06/20/2016 at 8:35 Approved by: Lynette Palma M.D. on 06/20/2016 at 8:35 PROCEDURE: CT CERVICAL SPINE WITHOUT CONTRAST ([id number]) INDICATIONS: stair fall, cirrhosis Bones: No fractures or dislocations. Visualized superior ribs are intact. Soft tissues: Prevertebral soft tissues are normal in thickness. No paravertebral hematomas. No apical pneumothoraces. IMPRESSION: No visualized fracture or dislocation. Dictated by: Lynette Palma M.D. on 06/20/2016 at 8:33 Approved by: Lynette Palma M.D. on 06/20/2016 at 8:33 PROCEDURE: X-RAY CHEST ONE VIEW, PORTABLE ([id number]) INDICATIONS: fall from stairs FINDINGS: Surgical changes and devices: None. Lungs and pleura: No pleural effusions or pneumothorax. No change in left basilar scarring. Mediastinum: Mediastinal contours appear normal. Heart size is normal. Bones and chest wall: No suspicious bony lesions. Overlying soft tissues appear unremarkable. IMPRESSION: No acute process. Concordant with preliminary interpretation. Dictated by: Jesse Cao M.D. on 06/20/2016 at 8:38 Approved by: Jesse Cao M.D. on 06/20/2016 at 8:38 PROCEDURE: CT BRAIN WITHOUT CONTRAST ([id number]) INDICATIONS: head trauma FINDINGS: Image quality: This is a markedly limited study due to patient motion artifact. CSF spaces: Basal cisterns are patent. No extra-axial fluid collections. Ventricles are normal in size and shape. Brain: No midline shift. No intracranial masses or hemorrhage. Nash-white matter interface is normal. Skull and face: Soft tissue swelling and subgaleal hematoma overlies the right frontal bone. Calvarium and visualized facial bones are intact, without suspicious lesions. Sinuses: Visualized sinuses and mastoids are clear. IMPRESSION: Markedly limited study. No acute intracranial findings. Right frontal subgaleal hematoma. Dictated by: Caro Ivory M.D. on 06/20/2016 at 14:56 Approved by: Caro Ivory M.D. on 06/20/2016 at 14:56 12-lead ECG Sinus at a rate of 82 QTC is 5.Q in 3 and aVF Assessment & Plan # Fall down flight of stairs with multiple rib fractures, acute, present on admission - Repeat CT of head negative - Right rib 8,9,10 fracture on x-ray - Dilaudid 0.5 mg IV q4h ruben and q8h prn - Toradol 30 mg IV q8h prn - Neuro checks every 4 as did have head trauma # Acute on chronic hepatic encephalopathy, present on admission - Patient is unable to take by mouth now so we will give lactulose enemas every 4 hours and check every 8 hour ammonia levels - Ammonia 129 as of today, 323 on admission - Rifaximin 550 mg PO bid ordered but available only in crushed form to go with PEG tube (something to consider in the near future) # Elevated PT PTT, present on admission - Secondary to hepatic cirrhosis - Patient to get vitamin K in the ER # End stage liver disease, present on admission, chronic - Further recommendations per gastroenterology specialist (Dr. Medley) # Thrombocytopenia, acute, present on admission - Plt 41 on admission, dropped to 35 today - Continue to monitor # Hyperglycemia - H/f DM insulin dependent - Sliding scale Lispro and scheduled Lantus # History of methamphetamine and alcohol abuse - Alcohol level checked and is 0. It is not clear whether he is continuing to drink alcohol - Negative urine drug screen # DVT prophylaxis SCDs Anticoagulation is contraindicated given recent fall and the fact that he has elevated PT PTT secondary to end-stage liver disease # CODE STATUS Per previous record patient is full code VTE Mechanical Devices: Intermittant Pneumatic CD Resuscitation Status: CPR: Attempt Resuscitation Attending Statement The patient was seen and examined together with Dr. Zuleta on 06/21/2015 and I agree with the history, exam and plan as outlined in the note above. CORINA ZULETA DO Jun 21, 2016 16:37 Eric Curtis MD Jun 22, 2016 10:11
[2016-06-21 16:39] LABS: INR 1.39 ratio
--- NOTE | 2016-06-21 17:12 | NUR ---
Order received for swallow/speech evaluation. Patient unable to follow commands for basic movement and in pain. Rec: NPO with oral care for comfort. Medications IV. PARENT PARTNER to hold evaluation until tomorrow.
--- NOTE | 2016-06-21 18:40 | NUR ---
Pain Pt has moaned and thrived in pain most of the day, given Ativan, Dilaudid, and Toradol with moderate relief. Notified MD, received new order for scheduled Dilaudid and PRN Dilaudid. Pt was changed to DNR today, and family has been at bedside most of the day. Will continue to make pt comfortable.
[2016-06-21] MEDS: HYDROmorphone 1 mg/mL Inj IVPUSH SCH ×2 (19:32→23:36)
[2016-06-22 01:00] VITALS: BP 136/83; PULSE 128; RESP 22; O2SAT 96
[2016-06-22] MEDS ORDERED: Acetaminophen IV 650 MG in IV Premix 1 EACH IV PRN (01:55)
[2016-06-22] MEDS ORDERED: Acetaminophen IV 1,000 MG in IV Premix 1 EACH IV PRN (02:05)
[2016-06-22] MEDS: Lactulose 10 Gm/15 mL 473 mL Solution RECTAL SCH ×5 (02:31→17:00)
[2016-06-22] MEDS: HYDROmorphone 0.5 mg/0.5 mL iSecure Syringe IVPUSH PRN ×2 (02:59→09:43)
[2016-06-22] MEDS: HYDROmorphone 1 mg/mL Inj IVPUSH SCH ×4 (03:40→21:36)
[2016-06-22 04:55] VITALS: BP 137/80; PULSE 125; RESP 22; O2SAT 95
--- NOTE | 2016-06-22 05:43 | NUR ---
neuro/pain: pt moaning, restless, moving all extremities. Pt is not able to answer questions, does not follow directions, has been non verbal this shift. hospitalist aware. pain Meds given per orders, pt on CPOX. Q4hr lactulose enemas. will continue to monitor.
[2016-06-22 06:30] VITALS: PULSE 105
[2016-06-22 06:33] LABS: BASOPHILS % (AUTO) 0.1 % (0-3); EOSINOPHILS % (AUTO) 0.1 % (0-5); MONOCYTES % (AUTO) 15.9 % (4-12); Mean Corpuscular Volume 86.5 fL (81-100); NEUTROPHILS % (AUTO) 74.2 % (40-74); Platelet Count 41 bil/L (150-400)
[2016-06-22] MEDS: 0.9% Sodium Chloride 1,000 ML IV SCH (07:32)
[2016-06-22 08:00] VITALS: PULSE 125
[2016-06-22] MEDS: Insulin LISPRO 300 Unit/3 mL Inj SUBQ SCH ×4 (08:08→22:00)
[2016-06-22 09:39] VITALS: BP 163/102; PULSE 135; RESP 21; O2SAT 95
--- NOTE | 2016-06-22 11:13 | NUR ---
BP Increase BP 163/102 HR 135, MD notified new orders pending.
[2016-06-22] MEDS ORDERED: DEXTROSE 5% IV SCH ×2 (11:25→11:46)
[2016-06-22] MEDS: Dextrose 5% 1,000 ML IV SCH ×3 (12:20→22:39)
[2016-06-22 13:00] VITALS: BP 146/93; PULSE 141; RESP 22; O2SAT 95
[2016-06-22] MEDS ORDERED: HYDROmorphone 0.5 mg/0.5 mL iSecure Syringe IVPUSH PRN ×2 (13:00→15:24)
[2016-06-22] MEDS: MeTOProlol 1 mg/mL 5 mL Inj IVPUSH SCH ×2 (14:00→14:26)
[2016-06-22] MEDS: cefTRIAXone Inj 2,000 MG in IV Premix 1 EACH IV SCH ×2 (14:00→14:26)
[2016-06-22] MEDS ORDERED: Glucose 40% Oral Gel 15 Gm Tube PO PRN (14:15)
[2016-06-22] MEDS ORDERED: HYDROmorphone 1 mg/mL Inj IVPUSH SCH (14:30)
--- NOTE | 2016-06-22 14:32 | NUR ---
Resp Pt started to desat to 76, placed NC 5L, pt came back up to 91, switch out NC to oxymask. Notifying MD. Addendum: 06/22/16 at 1551 by DANNIE CHI RN Dr Constantino was notified as was Dr Rojo. Per pt is actively passing, was call at the request of family. Pt was given Ativan for comfort, pt is agonally breathing with Oxymask 10L oxygen, sats 96%. Per non-admin enemas, and to continue comfort meds. Will continue to monitor.
--- NOTE | 2016-06-22 15:06 | PCM.CONPAL ---
Date of Service Jun 22, 2016 Date of Hospital Admission: Jun 20, 2016 at 04:30 Date of Palliative Consult: Jun 22, 2016 Requesting Provider: CORINA ZULETA DO Reason Palliative Care Consult: Goals of Care Discussion Hospital Unit @time of consult: Medical/Pediatric Care Palliative Care Recommendation 45-year-old male with end-stage liver disease, admitted following a fall at home , with progressive encephalopathy, acidosis, etc. Palliative medicine consulted to assist patient's family with determination of goals of care. Transitioning to comfort care over the last 24 hours. Summary of palliative recommendations: -Symptom management (Pain/other)- patient continued to show evidence of significant pain, and as a consequence of lengthy discussions with his family members- particularly his mother- primary goal identified as comfort and pain relief. Family was aware that use of such medicines could have significant side effects or even hasten his in the setting of his end-stage liver disease, but were accepting of this risk, preferring that he be comfortable and not in visible distress. To that end, he is being treated with IV hydromorphone as needed for his discomfort, and is transitioning to comfort care -DPOA/Advanced Directives/POLST- DO NOT RESUSCITATE/DO NOT INTUBATE per conversations with his family. Reportedly, patient previously had a POLST that indicated this documentation cannot be located. -Family/emotional support- we will continue to follow and provide support as able. -Spiritual support- offered Patient Goals: 1. Patient's family wants to be told the truth about his illness, even if it is unpleasant. 2. Patient's family would like to be told prognosis when it can be predicted, to better guide treatment decisions. 3. Patient would choose quality of life over quantity of life, and defines quality as being comfortable and out of pain 4. Patient would request that comfort care take priority over cognitive/mental confusion. Additional Medical Diagnoses with primary management by Hospitalist team include : # Fall down flight of stairs with multiple rib fractures, acute, present on admission # Acute on chronic hepatic encephalopathy, present on admission # Elevated PT PTT, present on admission # End stage liver disease, present on admission, chronic # Thrombocytopenia, acute, present on admission # Hyperglycemia # History of methamphetamine and alcohol abuse Problems: End of Life Preferences DO NOT RESUSCITATE/DO NOT INTUBATE/transitioning to comfort care Goals of Care Comfort and relief of distress Disposition To be determined Resuscitation Status Resuscitation Status: DNR/DNI:Do Not Resuscitate/Intubate POLST Updates/Changes Previous POLST?: Yes . Advanced Care Planning Address: Comfort care Pain: Moderate Symptom management: Pain Pt History History of Present Illness Per admission H&P: This is a 45-year-old male who has a history of end-stage liver disease secondary to hepatitis C and EtOH abuse. He also has a history of chronic hepatic encephalopathy. Tonight fell down a flight of stairs and was brought in. He does have a abrasion on his head and did have CT scanning of head chest abdomen and pelvis with the significance of right sided 8,9 and 10 rib fractures. He also was found to have significant elevated ammonia level. Is not clear whether he has been taking his medications. I am unable to get history from him and there is no one else at bedside. He has a did have a CT of C-spine which was negative. As mentioned other history is unobtainable. Since admission patient continued to be encephalopathic with elevated ammonia levels, not responsive to therapy. Progressive metabolic acidosis noted as well. Palliative medicine consulted to assist patient's family and determination of goals of care. Prior to seen the patient yesterday and today, reviewed his records in the EMR in detail, spoke with his medical team and with his bedside nurse. Multiple visits with multiple family members over the last 2 days including his mother, brothers, sisters and other relatives. Patient has consistently been unable to respond- moans and grimaces but no meaningful verbal response and no response to commands. Past Medical History Significant PMH Noted: Cirrhosis of liver due to alcoholism Chronic hepatitis C---failed Harvoni currently on second line treatment Chronic encephalopathy Portal hypertensive gastropathy Ascites Diabetes mellitus-insulin dependent Esophageal varices Substance abuse-Meth Alcohol abuse Hypertension Hypothyroidism Thrombocytopenia Gastroesophageal reflux disease Retinal edema Chronic pain Lumbar spinal stenosis Allergies Depression Anxiety Disorder Circumcision Redundant prepuce and phimosis Balanoposthitis Chronic pain Past Surgical History Right hand Social History Occupation: Medically disabled Living Situation: Lives at home with his mother who is his primary caregiver/RUDI caregiver Allergy Allergies Reviewed: Yes Medications Current Medications: Current Medications Lorazepam 1 mg TID PRN PO; Start 06/20/16 at 15:30; Stop 06/20/16 at 20:27; Status DC Ketorolac Tromethamine 30 mg Q8H PRN IV Last administered on 06/22/16 02:39; Admin Dose 30 MG; Start 06/20/16 at 16:15; Stop 06/25/16 at 16:16 Lorazepam 1 mg Q6 PRN IVPUSH Last administered on 06/22/16 14:51; Admin Dose 1 MG; Start 06/20/16 at 20:25 Insulin Glargine 25 unit HS SUBQ Last administered on 06/21/16 22:06; Admin Dose 25 UNIT; Start 06/21/16 at 01:25; Stop 06/22/16 at 13:23; Status DC Insulin Human Lispro Nutritional Dose to be given pr... [facility] SUBQ Last administered on 06/22/16 12:19; Admin Dose 7 UNIT; Start 06/21/16 at 08:00; Stop 06/22/16 at 14:17; Status DC Rifaximin 550 mg BID PO; Start 06/21/16 at 11:35 Hydromorphone HCl 0.5 mg Q4H IVPUSH Last administered on 06/22/16 08:04; Admin Dose 0.5 MG; Start 06/21/16 at 19:40; Stop 06/22/16 at 11:25; Status DC Hydromorphone HCl 0.5 mg 0.5 mg Q8H PRN IVPUSH Last administered on 06/21/16 21 :20; Admin Dose 0.5 MG; Start 06/21/16 at 16:20; Stop 06/22/16 at 02:35; Status DC Acetaminophen 650 mg/Premix 65 ml @ 260 mls/hr Q8H PRN IV; Start 06/22/16 at 01 :55; Stop 06/22/16 at 02:01; Status DC Acetaminophen/ Premix 100 ml @ 400 mls/hr Q12H PRN IV; Start 06/22/16 at 02:05 ; Stop 06/22/16 at 02:36; Status DC Hydromorphone HCl 1 mg 1 mg Q4H PRN IVPUSH Last administered on 06/22/16 09:43 ; Admin Dose 1 MG; Start 06/22/16 at 02:49; Stop 06/22/16 at 12:58; Status DC Dextrose/Water 3,500 ml @ 190 mls/hr [id number] IV; Start 06/22/16 at 11:25; Stop 06/22/16 at 11:46; Status DC Dextrose/Water 1,000 ml @ 190 mls/hr Q5H16M IV; Start 06/22/16 at 11:46; Stop at 11:49; Status DC Dextrose/Water 1,000 ml @ 190 mls/hr Q5H16M IV Last administered on 06/22/16 12 :20; Admin Dose 190 MLS/HR; Start 06/22/16 at 11:49; Stop 06/23/16 at 05:50 Hydromorphone HCl 1-2 mg IV as direc... Q3 PRN IVPUSH Last administered on 13:29; Admin Dose 2 MG; Start 06/22/16 at 13:00 Hydromorphone HCl 1 mg Q6 IVPUSH; Start 06/22/16 at 14:30 Insulin Glargine 28 unit HS SUBQ; Start 06/22/16 at 21:00 Metoprolol Tartrate 12.5 mg 12.5 mg BID IVPUSH Last administered on 06/22/16 14: 26; Admin Dose 12.5 MG; Start 06/22/16 at 13:25 Ceftriaxone Sodium/Dextrose/ Premix 50 ml @ 100 mls/hr Q24 IV Last administered on 06/22/16 14:26; Admin Dose 100 MLS/HR; Start 06/22/16 at 13:35 Insulin Human Lispro Nutritional Dose to be given pr... [facility] SUBQ; Start at 17:30 Scheduled Amitriptyline (Amitriptyline) 100 Mg Tablet 100 MG PO HS Furosemide (Furosemide) 40 Mg Tablet 40 MG PO DAILY Insulin Glargine (Lantus U100 Solostar Insulin Pen) 100 Unit/1 Ml Insuln.pen 30 UNIT SUBQ QAM Insulin Glargine (Lantus U100 Solostar Insulin Pen) 100 Unit/1 Ml Insuln.pen 28 UNIT SUBQ HS Lactulose (Lactulose) 10 Gm/15 Ml Solution 65 ML PO QID Levothyroxine (Levothyroxine) 25 Mcg Tablet 25 MCG PO DAILY Omeprazole (Omeprazole) 20 Mg Capsule.dr 20 MG PO DAILY Pregabalin (Lyrica) 150 Mg Capsule 150 MG PO HS Propranolol HCl (Propranolol HCl) 20 Mg Tablet 20 MG PO QAM Rifaximin (Xifaxan) 550 Mg Tablet 550 MG PO BID Spironolactone (Spironolactone) 100 Mg Tablet 100 MG PO QAM Scheduled PRN Citalopram Hydrobromide (Celexa) 40 Mg Tablet 40 MG PO DAILY PRN PRN For Anxiety Hydroxyzine Pamoate (HydrOXYzine Pamoate) 25 Mg Capsule 25 MG PO QID PRN PRN For Itching Insulin Aspart (NovoLOG U100 Insulin Vial) 100 Unit/Ml Mdv 0-13 UNITS SUBQ TIDWM PRN PRN sliding scale Oxycodone ER (Oxycontin) 10 Mg Tab.er.12h 10 MG PO Q12 PRN PRN For Pain Triamcinolone Acetonide (Triamcinolone Acetonide Ointment) 15 Gm Oint...g. 1 APPLIC TRANSDERM BID PRN PRN rash Objective Findings Exam Vital Sign - Last Date Time Temp Pulse Resp B/P Pulse Ox O2 Delivery O2 Flow Rate FiO2 06/22/16 13:00 37.1 141 22 146/93 95 Room Air Intake and Output 06/21/16 06/21/16 06/22/16 Cumulative From/Thru 15:00 23:00 07:00 06/20/16 04:02 - 06/22/16 06:24 Intake Total 1103 ml 0 ml 4514 ml Output Total 1925 ml 3275 ml 6600 ml Balance -822 ml -3275 ml -2086 ml Intake Oral 0 ml 0 ml 0 ml IV Total 1103 ml 4514 ml Output Urine Total 600 ml 575 ml 2575 ml Stool Total 1325 ml 2700 ml 4025 ml # Bowel Movements 5 9 Objective Chronically ill appearing gentleman lying in bed, somewhat restless and moaning softly. Vital signs noted. Skin warm and dry. Head and neck exam without acute focal findings. Lungs clear anteriorly, heart sounds irregular, abdomen rounded, soft, without apparent peritoneal signs. Mild lower quadrant tenderness bilaterally. Extremities with diffuse trace pitting edema. Neurologic exam limited due to his inability to cooperate. Lab/Diagnostics Lab and Imaging results reviewed in detail in EMR. Patient/Family Conference Discussion/Goals of Care Spoke at length with patient's mother Yuli, his brother and other family members on multiple occasions on 06/21 and 06/22. Reviewed his long-term medical history with them as well as his presenting issues for this admission, his laboratory and imaging findings, his response (or lack thereof) to therapy, etc. Answered questions they had about his acute admission as well as his chronic medical conditions- particularly his end-stage liver disease which has been progressive and intractable. In light of his persistent/progressive encephalopathy and deterioration otherwise his mother wished that primary attention be given towards keeping him comfortable. CODE STATUS was updated. Today, after his narcotics were decreased, he exhibited significant increase in pain signs and symptoms. Spoke at length with his family members again and his mother reiterated her wish (which all attending family members appeared to agree with) that primary attention be given to making sure that the patient is comfortable. She understood that medications for comfort could hasten his demise as a side effect, but was accepting of this. Time spent Total time 85 minutes; >50% face to face with patient and family, providing counselling regarding plans and recommendations, and in care coordination with his medical teams. The above total time, 35 minutes counseling for advanced care planning with the patient's family Chaz Constantino MD Jun 22, 2016 15:06
--- NOTE | 2016-06-22 17:07 | NUR ---
Patient is comfort care. Discharge ORDER FILLER orders at this time.
--- NOTE | 2016-06-22 17:34 | PCM.PNMED ---
Subjective Date of Service Jun 22, 2016 Subjective Patient continues to be unable to follow commands, he is moaning in pain, agitated. BP and HR continue to increase. Family at bedside. Exam Vital Signs Vital Sign - Last Date Time Temp Pulse Resp B/P Pulse Ox O2 Delivery O2 Flow Rate FiO2 06/22/16 13:00 37.1 141 22 146/93 95 Room Air Intake and Output 06/21/16 06/21/16 06/22/16 Cumulative From/Thru 15:00 23:00 07:00 06/20/16 04:02 - 06/22/16 06:24 Intake Total 1103 ml 0 ml 4514 ml Output Total 1925 ml 3275 ml 6600 ml Balance -822 ml -3275 ml -2086 ml Intake Oral 0 ml 0 ml 0 ml IV Total 1103 ml 4514 ml Output Urine Total 600 ml 575 ml 2575 ml Stool Total 1325 ml 2700 ml 4025 ml # Bowel Movements 5 9 Exam Constitutional: moaning, hard to arouse Head: Hematoma in the lateral portion of his mouth and right frontal hairline hematoma Eyes: PERRL Neck: No adenopathy Heart: Regular rate and rhythm S1-S2, tachycardic Lungs: Clear to auscultation Abdomen: soft nontender bowel sounds present : Muñoz cath and FMS in place Extremities exam: Bilateral pitting edema with chronic venous stasis changes Psych: Unable to assess Neuro: Arouses to pain moves all extremities equally Lab and Diagnostics Result Diagram: 06/22/16 0600 06/22/16 0600 X-Rays, CTs and MRIs PROCEDURE: CT ABDOMEN AND PELVIS WITH CONTRAST TRAUMA ([id number] [id number]) ABDOMEN: Lung bases: Bibasilar atelectasis. Heart size is normal. No pericardial effusion. Right 8th, 9th and 10th rib fractures are present. No basal pleural effusions or pneumothorax. Solid organs: Liver is shrunken and cirrhotic in appearance. The spleen is enlarged. Splenic and gastric varices are present. Gallbladder is unremarkable. Biliary system is non-dilated. Pancreas enhances normally, without transection. No adrenal hematomas. Both kidneys enhance normally, without hydronephrosis or lacerations. Nonobstructing right punctate renal calculus. Peritoneum and bowel: No free fluid or air. Unenhanced bowel loops demonstrate normal wall thickness and caliber. Nodes and vessels: No retroperitoneal or mesenteric adenopathy. Aorta and inferior vena cava are normal in size and enhancement. Miscellaneous: No ventral hernias. PELVIS: Genitourinary: Bladder wall thickness is normal. Miscellaneous: No inguinal hernias or adenopathy. Bones: Pelvic ring and hip joints appear intact. No vertebral compression fractures. IMPRESSION: 1. Right posterior right 8th-10th rib fractures. 2. Cirrhosis with splenomegaly and varices consistent with portal venous hypertension. 3. Nonobstructing right nephrolithasis. Dictated by: Lynette Palma M.D. on 06/20/2016 at 8:46 Approved by: Lynette Palma M.D. on 06/20/2016 at 8:46 PROCEDURE: CT BRAIN WITHOUT CONTRAST ([id number]) INDICATIONS: stair fall, cirrhosis IMPRESSION: 1. No acute intracranial process. 2. Right frontal scalp hematoma. Dictated by: Lynette Palma M.D. on 06/20/2016 at 8:35 Approved by: Lynette Palma M.D. on 06/20/2016 at 8:35 PROCEDURE: CT CERVICAL SPINE WITHOUT CONTRAST ([id number]) INDICATIONS: stair fall, cirrhosis Bones: No fractures or dislocations. Visualized superior ribs are intact. Soft tissues: Prevertebral soft tissues are normal in thickness. No paravertebral hematomas. No apical pneumothoraces. IMPRESSION: No visualized fracture or dislocation. Dictated by: Lynette Palma M.D. on 06/20/2016 at 8:33 Approved by: Lynette Palma M.D. on 06/20/2016 at 8:33 PROCEDURE: X-RAY CHEST ONE VIEW, PORTABLE ([id number]) INDICATIONS: fall from stairs FINDINGS: Surgical changes and devices: None. Lungs and pleura: No pleural effusions or pneumothorax. No change in left basilar scarring. Mediastinum: Mediastinal contours appear normal. Heart size is normal. Bones and chest wall: No suspicious bony lesions. Overlying soft tissues appear unremarkable. IMPRESSION: No acute process. Concordant with preliminary interpretation. Dictated by: Jesse Cao M.D. on 06/20/2016 at 8:38 Approved by: Jesse Cao M.D. on 06/20/2016 at 8:38 PROCEDURE: CT BRAIN WITHOUT CONTRAST ([id number]) INDICATIONS: head trauma FINDINGS: Image quality: This is a markedly limited study due to patient motion artifact. CSF spaces: Basal cisterns are patent. No extra-axial fluid collections. Ventricles are normal in size and shape. Brain: No midline shift. No intracranial masses or hemorrhage. Nash-white matter interface is normal. Skull and face: Soft tissue swelling and subgaleal hematoma overlies the right frontal bone. Calvarium and visualized facial bones are intact, without suspicious lesions. Sinuses: Visualized sinuses and mastoids are clear. IMPRESSION: Markedly limited study. No acute intracranial findings. Right frontal subgaleal hematoma. Dictated by: Caro Ivory M.D. on 06/20/2016 at 14:56 Approved by: Caro Ivory M.D. on 06/20/2016 at 14:56 12-lead ECG Sinus at a rate of 82 QTC is 5.Q in 3 and aVF Assessment & Plan # Fall down flight of stairs with multiple rib fractures, acute, present on admission - Repeat CT of head negative - Right rib 8,9,10 fracture on x-ray - Dilaudid 0.5 mg IV q4h ruben and q8h prn. Temporarily stopped. - Toradol 30 mg IV q8h prn - Neuro checks every 4 as did have head trauma # Acute on chronic hepatic encephalopathy, present on admission - Patient is unable to take by mouth now so we will give lactulose enemas every 4 hours and check every 8 hour ammonia levels - Ammonia 145 as of today, 323 on admission - Rifaximin 550 mg PO bid ordered but available only in crushed form to go with PEG tube (something to consider in the near future) # Mild hypernatremia and hyperchloremia, acute - IV NS stopped - D5W 3.5 L @ 190 mls/hr - Monitor labs # UTI, acute, present on admission - Temp 37.9 F overnight - Positive UA, culture pending - Rocephin 2 gm IV q24h # Persistent tachycardia, acute - Most likely d/t pain - Metoprolol 12.5 IV bid # Elevated PT PTT, present on admission - Secondary to hepatic cirrhosis - Patient to get vitamin K in the ER # End stage liver disease, present on admission, chronic - Further recommendations per gastroenterology specialist (Dr. Medley) - GI consult with Dr. Avelar requested # Thrombocytopenia, acute, present on admission - Plt up to 41 - Continue to monitor # Hyperglycemia - H/f DM insulin dependent - Blood sugar 327 - Sliding high scale Lispro and scheduled Lantus 28 units hs # History of methamphetamine and alcohol abuse - Alcohol level checked and is 0. It is not clear whether he is continuing to drink alcohol - Negative urine drug screen # DVT prophylaxis SCDs Anticoagulation is contraindicated given recent fall and the fact that he has elevated PT PTT secondary to end-stage liver disease # CODE STATUS Per previous record patient is full code VTE Mechanical Devices: Intermittant Pneumatic CD Resuscitation Status: CPR: Attempt Resuscitation Attending Statement The patient was seen and examined together with Dr. Zuleta on 06/22/2016 and I agree with the history, exam and plan as outlined in the note above. CORINA ZULETA DO Jun 22, 2016 15:01 Eric Curtis MD Jun 23, 2016 10:08
--- NOTE | 2016-06-22 17:37 | NUR ---
spiritual care: family request ritual at bedside, many family gathered, provided written resources, prayer, blessing and hand/foot print with family's help. Relayed update to Fr Luu.
[2016-06-22] MEDS ORDERED: Insulin GLARgine 100 Unit/mL Syringe SUBQ SCH (21:00)
[2016-06-23] MEDS: HYDROmorphone 1 mg/mL Inj IVPUSH SCH ×2 (03:24→06:24)
[2016-06-23] MEDS: Dextrose 5% 1,000 ML IV SCH (03:37)
--- NOTE | 2016-06-23 05:54 | NUR ---
Comfort pt unresponsive, occ. moaning. IV Dilaudid given x2 and IV Ativan given x1, effective. Lots of family in room at all times.
[2016-06-23 06:07] LABS: BASOPHILS % (AUTO) 0.1 % (0-3); EOSINOPHILS % (AUTO) 0 % (0-5); MONOCYTES % (AUTO) 11.9 % (4-12); Mean Corpuscular Hemoglobin 31.4 pg (27.0-35.0); Mean Corpuscular Volume 89.8 fL (81-100); NEUTROPHILS % (AUTO) 83.7 % (40-74); Platelet Count 60 bil/L (150-400)
[2016-06-23] MEDS: Insulin LISPRO 300 Unit/3 mL Inj SUBQ SCH (08:00)
[2016-06-23] MEDS: MeTOProlol 1 mg/mL 5 mL Inj IVPUSH SCH (08:30)
[2016-06-23] MEDS ORDERED: HYDROmorphone 0.5 mg/0.5 mL iSecure Syringe IVPUSH PRN (09:24)
[2016-06-23] MEDS ORDERED: Artificial Tears 15 mL Ophthalmic Solution AFFECT_EYE PRN (09:50)
[2016-06-23] MEDS ORDERED: Atropine 1% 5 mL Ophthalmic Solution PO PRN (09:50)
[2016-06-23] MEDS ORDERED: Haloperidol 5 mg/mL Inj IVPUSH PRN (09:50)
[2016-06-23] MEDS ORDERED: Morphine 100 mg/100 mL NS 100 MG in IV Premix 1 EACH IV SCH (09:50)
--- NOTE | 2016-06-23 09:55 | PCM.PALLBR ---
Palliative Care Recommendation 45-year-old male with end-stage liver disease, admitted following a fall at home , with progressive encephalopathy, metabolic abnormalities, etc. Palliative medicine was consulted to assist patient's family with determination of goals of care. Patient has continued to deteriorate and his mother and other family members request that we proceed to purely comfort/end-of-life care. Summary of palliative recommendations: -Symptom management (Pain/other)- end-of-life care protocol initiated. Will start morphine drip with titration per protocol. Other medications for comfort ordered. I expect that he will here in the hospital next 24-48 hours. -DPOA/Advanced Directives/POLST- DO NOT RESUSCITATE/DO NOT INTUBATE per conversations with his family. Reportedly, patient previously had a POLST that indicated this documentation cannot be located. Transitioning to purely comfort care at this time at the request of his mother and the rest of his family -Family/emotional support- we will continue to follow and provide support as able. -Spiritual support- offered; seen by Hospital wood floor refinisher and Father Jus also aware Patient Goals: 1. Patient's family wants to be told the truth about his illness, even if it is unpleasant. 2. Patient's family would like to be told prognosis when it can be predicted, to better guide treatment decisions. 3. Patient's family would choose quality of life over quantity of life, and defines quality as being comfortable and out of pain 4. Patient's family would request that comfort care take priority over cognitive /mental confusion. Additional Medical Diagnoses with primary management by Hospitalist team include : # Fall down flight of stairs with multiple rib fractures, acute, present on admission # Acute on chronic hepatic encephalopathy, present on admission # Elevated PT PTT, present on admission # End stage liver disease, present on admission, chronic # Thrombocytopenia, acute, present on admission # Hyperglycemia # History of methamphetamine and alcohol abuse Problems: End of Life Preferences DO NOT RESUSCITATE/DO NOT INTUBATE/ comfort care Goals of Care Comfort and relief of distress Disposition Will likely here in hospital in next 24-48 hours Resuscitation Status Resuscitation Status: DNR/DNI:Do Not Resuscitate/Intubate POLST Updates/Changes Previous POLST?: Yes . Advanced Care Planning Address: Comfort care Pain: Mild Total time [ ] minutes; >50% face to face with patient and/or family, providing counselling regarding plans and recommendations, and in care coordination with his/her medical teams. I also spent an additional [ ] minutes counseling for advanced care planning with the patient/the patients family/the surrogate decision maker. Palliative Brief Note Date of Service Jun 23, 2016 . Returned to reevaluate patient. Multiple family members at bedside including his mother. He remains unresponsive with shallow respirations. His mother notes that he occasionally moans softly but overall appears more comfortable than yesterday. She requests additional medications for him so that he shows no signs of discomfort and has no further moaning or other evidence of distress. She understands that use of these medications may hasten his past seen and accepts that. Family members who are in attendance also indicate their agreement with her wishes. I spoke with her about initiating a morphine drip and other end-of-life care medications and she wishes for that to proceed. Chaz Constantino MD Jun 23, 2016 09:55
--- NOTE | 2016-06-23 13:31 | PCM.PALLBR ---
Palliative Care Recommendation 45-year-old male with end-stage liver disease, admitted following a fall at home with multiple rib fractures, with progressive encephalopathy, metabolic abnormalities, etc. Palliative medicine was consulted to assist patient's family with determination of goals of care. Patient has continued to deteriorate and his mother and other family members request that we proceed to purely comfort/end-of-life care. Summary of palliative recommendations: -Symptom management (Pain/other)- end-of-life care protocol initiated. Will continue morphine drip with titration per protocol. Other medications for comfort ordered. I expect that he will here in the hospital next 24-48 hours. -DPOA/Advanced Directives/POLST- DO NOT RESUSCITATE/DO NOT INTUBATE per conversations with his family. Reportedly, patient previously had a POLST that indicated this documentation cannot be located. Transitioned to purely comfort care at this time at the request of his mother and the rest of his family -Family/emotional support- we will continue to follow and provide support as able. -Spiritual support- offered; seen by Hospital renal nurse and Father Jus also aware Patient Goals: 1. Patient's family wants to be told the truth about his illness, even if it is unpleasant. 2. Patient's family would like to be told prognosis when it can be predicted, to better guide treatment decisions. 3. Patient's family would choose quality of life over quantity of life, and defines quality as being comfortable and out of pain 4. Patient's family would request that comfort care take priority over cognitive /mental confusion. Additional Medical Diagnoses with primary management by Hospitalist team include : # Fall down flight of stairs with multiple rib fractures, acute, present on admission # Acute on chronic hepatic encephalopathy, present on admission # Elevated PT PTT, present on admission # End stage liver disease, present on admission, chronic # Thrombocytopenia, acute, present on admission # Hyperglycemia # History of methamphetamine and alcohol abuse Problems: End of Life Preferences DO NOT RESUSCITATE/DO NOT INTUBATE/ comfort care Goals of Care Comfort and relief of distress Disposition Will likely here in hospital in next 24-48 hours Resuscitation Status Resuscitation Status: DNR/DNI:Do Not Resuscitate/Intubate POLST Updates/Changes Previous POLST?: Yes . Advanced Care Planning Address: Comfort care Pain: Mild Symptom management: Pain Total time 65 minutes; >50% face to face with patient and family, providing counselling regarding plans and recommendations, and in care coordination with his medical teams. Of the above total time, 50 minutes counseling for advanced care planning with the patients family Palliative Brief Note Date of Service Jun 23, 2016 . Returned to reevaluate patient. Prior to visiting, reviewed updated records in the EMR and spoke with his bedside nurse. When I arrived, multiple family members are at bedside, including his mother and sister. They note that the patient only infrequently moans and that overall he appears comfortable most of the time. They initiated a request that I increase his pain medications further, however, because they want to be certain that he is completely comfortable, and they also do not want the family to feel stressed by seeing the patient in distress. They understand that increasing his medications may hasten his and they accept this. His mother reiterated her understanding and acceptance of his situation, and as much as she can be, is comfortable with his passing (in light of his long illness and deterioration over the last months). His son required a document that would allow him to remain at bedside- I completed that documentation for him and it was faxed as needed. Return multiple times through the day to visit with the family and recheck on the patient, speak with his nurse regarding medications, etc. Chaz Constantino MD Jun 23, 2016 13:31
--- NOTE | 2016-06-23 14:42 | NUR ---
PASSING Family member came out to inform this RN, pt stopped breathing. Pt was noted to have stopped breathing with no heart beat at approximately 1330, MD Dr. Constantino was notified and arrived to room shortly after. Donation, switch board, nursing sup, pharmacist in charge owner, and pharmacy all notified. Family at bedside.
--- NOTE | 2016-06-23 15:19 | NUR ---
spiritual care: follow up/pall care phys follow up conversations with family members as they grieve immediately after pt's . Written resources provided, contacted. Family appreciative.
--- NOTE | 2016-06-23 15:54 | NUR ---
Morphine Drip Morphine wasted with Delfina Haq, 96.3 of 100 mls wasted. Addendum: 06/23/16 at 1603 by STONE HAQ RN Witnessed the above waste into liquid waste bin in med room.
--- NOTE | 2016-06-23 16:23 | NUR ---
Transfer Pt transferred to the [facility] by security at this time.
--- NOTE | 2016-06-23 19:49 | PCM.DC.MED ---
Discharge Summary Date of Service Jun 23, 2016 Dates of Hospitalization Date of Hospital Admission Jun 20, 2016 at 04:30 Date of Discharge: Jun 23, 2016 Providers: Admitting Physician: Jaleesa Delgado MD Primary Care Physician: Cara Mohr DO Attending Physician: Jaleesa Delgado MD Diagnosis at Time of Discharge Diagnosis at Time of Discharge # Fall down flight of stairs with multiple rib fractures # Acute on chronic hepatic encephalopathy # Mild hypernatremia and hyperchloremia # UTI # Persistent tachycardia # Elevated PT PTT # End stage liver disease # Thrombocytopenia # Hyperglycemia # History of methamphetamine and alcohol abuse Procedures XRay, CTs & MRIs PROCEDURE: CT ABDOMEN AND PELVIS WITH CONTRAST TRAUMA (PNL 0869) ABDOMEN: Lung bases: Bibasilar atelectasis. Heart size is normal. No pericardial effusion. Right 8th, 9th and 10th rib fractures are present. No basal pleural effusions or pneumothorax. Solid organs: Liver is shrunken and cirrhotic in appearance. The spleen is enlarged. Splenic and gastric varices are present. Gallbladder is unremarkable. Biliary system is non-dilated. Pancreas enhances normally, without transection. No adrenal hematomas. Both kidneys enhance normally, without hydronephrosis or lacerations. Nonobstructing right punctate renal calculus. Peritoneum and bowel: No free fluid or air. Unenhanced bowel loops demonstrate normal wall thickness and caliber. Nodes and vessels: No retroperitoneal or mesenteric adenopathy. Aorta and inferior vena cava are normal in size and enhancement. Miscellaneous: No ventral hernias. PELVIS: Genitourinary: Bladder wall thickness is normal. Miscellaneous: No inguinal hernias or adenopathy. Bones: Pelvic ring and hip joints appear intact. No vertebral compression fractures. IMPRESSION: 1. Right posterior right 8th-10th rib fractures. 2. Cirrhosis with splenomegaly and varices consistent with portal venous hypertension. 3. Nonobstructing right nephrolithasis. Dictated by: Lynette Palma M.D. on 06/20/2016 at 8:46 Approved by: Lynette Palma M.D. on 06/20/2016 at 8:46 PROCEDURE: CT BRAIN WITHOUT CONTRAST ([id number]) INDICATIONS: stair fall, cirrhosis IMPRESSION: 1. No acute intracranial process. 2. Right frontal scalp hematoma. Dictated by: Lynette Palma M.D. on 06/20/2016 at 8:35 Approved by: Lynette Palma M.D. on 06/20/2016 at 8:35 PROCEDURE: CT CERVICAL SPINE WITHOUT CONTRAST ([id number]) INDICATIONS: stair fall, cirrhosis Bones: No fractures or dislocations. Visualized superior ribs are intact. Soft tissues: Prevertebral soft tissues are normal in thickness. No paravertebral hematomas. No apical pneumothoraces. IMPRESSION: No visualized fracture or dislocation. Dictated by: Lynette Palma M.D. on 06/20/2016 at 8:33 Approved by: Lynette Palma M.D. on 06/20/2016 at 8:33 PROCEDURE: X-RAY CHEST ONE VIEW, PORTABLE ([id number]) INDICATIONS: fall from stairs FINDINGS: Surgical changes and devices: None. Lungs and pleura: No pleural effusions or pneumothorax. No change in left basilar scarring. Mediastinum: Mediastinal contours appear normal. Heart size is normal. Bones and chest wall: No suspicious bony lesions. Overlying soft tissues appear unremarkable. IMPRESSION: No acute process. Concordant with preliminary interpretation. Dictated by: Jesse Cao M.D. on 06/20/2016 at 8:38 Approved by: Jesse Cao M.D. on 06/20/2016 at 8:38 PROCEDURE: CT BRAIN WITHOUT CONTRAST ([id number]) INDICATIONS: head trauma FINDINGS: Image quality: This is a markedly limited study due to patient motion artifact. CSF spaces: Basal cisterns are patent. No extra-axial fluid collections. Ventricles are normal in size and shape. Brain: No midline shift. No intracranial masses or hemorrhage. Nash-white matter interface is normal. Skull and face: Soft tissue swelling and subgaleal hematoma overlies the right frontal bone. Calvarium and visualized facial bones are intact, without suspicious lesions. Sinuses: Visualized sinuses and mastoids are clear. IMPRESSION: Markedly limited study. No acute intracranial findings. Right frontal subgaleal hematoma. Dictated by: Caro Ivory M.D. on 06/20/2016 at 14:56 Approved by: Caro Ivory M.D. on 06/20/2016 at 14:56 ECG 12 Lead Sinus at a rate of 82 QTC is 5.Q in 3 and aVF Brief History Per Admitting Physician: Kubisty,Jaleesa A MD: This is a 45-year-old male who has a history of end-stage liver disease secondary to hepatitis C and EtOH abuse. He also has a history of chronic hepatic encephalopathy. Tonight fell down a flight of stairs and was brought in. He does have a abrasion on his head and did have CT scanning of head chest abdomen and pelvis with the significance of right sided 8,9 and 10 rib fractures. He also was found to have significant elevated ammonia level. Is not clear whether he has been taking his medications. I am unable to get history from him and there is no one else at bedside. He has a did have a CT of C-spine which was negative. As mentioned other history is unobtainable. Hospital Course 45-year-old male with end-stage liver disease, admitted following a fall at home with multiple rib fractures, with progressive encephalopathy, metabolic abnormalities, etc. Since admission patient continued to be encephalopathic with elevated ammonia levels, not responsive to therapy. Progressive metabolic acidosis noted as well. Palliative medicine was consulted to assist patient's family with determination of goals of care. Patient has consistently been unable to respond- moans and grimaces but no meaningful verbal response and no response to commands. Patient has continued to deteriorate and his mother and other family members request that we proceed to purely comfort/end-of-life care. Over the last couple of days there were multiple visits with multiple family members. patient on 06/23/2016 at about 13:30 pm. # Fall down flight of stairs with multiple rib fractures, acute, present on admission - Repeat CT of head negative - Right rib 8,9,10 fracture on x-ray - Dilaudid 0.5 mg IV q4h ruben and q8h prn. Temporarily stopped. - Toradol 30 mg IV q8h prn - Neuro checks every 4 as did have head trauma # Acute on chronic hepatic encephalopathy, present on admission - Patient is unable to take by mouth now so we will give lactulose enemas every 4 hours and check every 8 hour ammonia levels - Ammonia 145 as of today, 323 on admission - Rifaximin 550 mg PO bid ordered but available only in crushed form to go with PEG tube (something to consider in the near future) # Mild hypernatremia and hyperchloremia, acute - IV NS stopped - D5W 3.5 L @ 190 mls/hr - Monitor labs # UTI, acute, present on admission - Temp 37.9 F overnight - Positive UA, culture pending - Rocephin 2 gm IV q24h # Persistent tachycardia, acute - Most likely d/t pain - Metoprolol 12.5 IV bid # Elevated PT PTT, present on admission - Secondary to hepatic cirrhosis - Patient to get vitamin K in the ER # End stage liver disease, present on admission, chronic - Further recommendations per gastroenterology specialist (Dr. Medley) - GI consult with Dr. Avelar requested # Thrombocytopenia, acute, present on admission - Plt up to 41 - Continue to monitor # Hyperglycemia - H/f DM insulin dependent - Blood sugar 327 - Sliding high scale Lispro and scheduled Lantus 28 units hs # History of methamphetamine and alcohol abuse - Alcohol level checked and is 0. It is not clear whether he is continuing to drink alcohol - Negative urine drug screen DVT prophylaxis: SCDs Anticoagulation is contraindicated given recent fall and the fact that he has elevated PT PTT secondary to end-stage liver disease Exam Vital Signs (Last) Date Time Temp Pulse Resp B/P Pulse Ox O2 Delivery O2 Flow Rate FiO2 06/22/16 19:45 Supplement Oxygen 06/22/16 13:00 37.1 141 22 146/93 95 Exam Prior to patient's passing: Constitutional: pt unresponsive, occasionally moaning, agonal breezing Head: Hematoma in the lateral portion of his mouth and right frontal hairline hematoma Heart: Irregular Extremities: diffuse trace pitting edema Test 06/20/16 02:00 06/20/16 11:38 06/20/16 12:35 06/21/16 07:40 Magnesium Level 1.6mg/dL (1.6-2.6) Troponin T 0.010ug/L (0.0-0.011) Alcohol, Quantitative < 10mg/dL (0-10) Urine Color Dark yellow (YELLOW) Urine Appearance Hazy (CLEAR,HAZY) Urine pH 6.5 (5.0-8.0) Urine Specific [place] 1.010 (1.003-1.035) Urine Protein Negativemg/dL (NEG,TRACE) Urine Glucose (UA) 250mg/dL (NEGATIVE) Urine Ketones 15mg/dL (NEGATIVE) Urine Occult Blood Large (NEGATIVE) Urine Nitrite Positive (NEGATIVE) Urine Bilirubin Negative (NEGATIVE) Urine Urobilinogen 8.0mg/dL (NORMAL) Urine Leukocyte Esterase Small (NEGATIVE) Urine RBC 3-10/hpf (0-2) Urine WBC 11-50/hpf (0-5) Urine Epithelial Cells Occasional/hpf (NONE-MOD) Urine Crystals None seen (NONE SEEN) Urine Bacteria Moderate/hpf (NONE-FEW) Urine Hyaline Casts None/lpf (NONE) Urine Granular Casts None seen (NONE SEEN) Urine Waxy Casts None seen (NONE SEEN) Urine Red Blood Cell Casts None seen (NONE SEEN) Urine White Blood Cell Casts None seen (NONE SEEN) Urine Mucus None seen (None Seen) Urine Trichomonas None seen (NONE SEEN) Urine Yeast None (NONE SEEN) Urinalysis Comment None Urine Culture Reflexed Indicated Urine Opiates Screen Negative Urine Methadone Screen Negative Urine Barbiturates Screen Negative Urine Amphetamines Screen Negative Urine Benzodiazepines Screen Negative Urine Cocaine Metabolite Screen Negative Urine Cannabinoids Screen Negative Hold [place] Top Tube Received (Received) Hemoglobin A1c 7.5% (4.8-5.6) Test 06/21/16 16:15 06/23/16 05:30 Prothrombin Time 15.0sec (8.1-12.5) Prothromb Time International Ratio 1.39ratio Activated Partial Thromboplast Time 32.0sec (22.8-33.0) White Blood Count 9.9th/mm3 (3.8-10.1) Red Blood Count 4.90mil/mm3 (4.40-5.80) Hemoglobin 15.4g/dL (13.8-17.2) Hematocrit 44.0% (41.0-50.0) Mean Corpuscular Volume 89.8fL (81-100) Mean Corpuscular Hemoglobin 31.4pg (27.0-35.0) Mean Corpuscular Hemoglobin Concent 35.0% (32.0-37.0) Red Cell Distribution Width 14.9% (12.3-15.4) Platelet Count 60bil/L (150-400) Neutrophils (%) (Auto) 83.7% (40-74) Lymphocytes (%) (Auto) 3.8% (14-46) Monocytes (%) (Auto) 11.9% (4-12) Eosinophils (%) (Auto) 0% (0-5) Basophils (%) (Auto) 0.1% (0-3) Sodium Level 156mEq/L (134-144) Potassium Level 3.5mEq/L (3.5-5.2) Chloride Level 123mEq/L (97-108) Carbon Dioxide Level 19mmol/L (18-29) Blood Urea Nitrogen 34mg/dL (6-24) Creatinine 0.90mg/dL (0.76-1.27) Estimat Glomerular Filtration Rate 97mL/min (>59) Glucose Level 334mg/dL (60-99) Calcium Level 9.8mg/dL (8.5-10.1) Total Bilirubin 5.2mg/dL (0.0-1.2) Aspartate Amino Transf (AST/SGOT) 82U/L (0-50) Alanine Aminotransferase (ALT/SGPT) 50U/L (0-44) Alkaline Phosphatase 139U/L (25-150) Ammonia 142ug/dL (18-53) Total Protein 5.9g/dL (6.4-8.4) Albumin 2.7g/dL (3.4-5.0) Discharge Medications Discharge Medications Amitriptyline (Amitriptyline) 100 Mg Tablet 100 MG PO HS (Reported) Furosemide (Furosemide) 40 Mg Tablet 40 MG PO DAILY (Reported) Insulin Glargine (Lantus U100 Solostar Insulin Pen) 100 Unit/1 Ml Insuln.pen 30 UNIT SUBQ QAM (Reported) Insulin Glargine (Lantus U100 Solostar Insulin Pen) 100 Unit/1 Ml Insuln.pen 28 UNIT SUBQ HS (Reported) Lactulose (Lactulose) 10 Gm/15 Ml Solution 65 ML PO QID (Reported) Levothyroxine (Levothyroxine) 25 Mcg Tablet 25 MCG PO DAILY (Reported) Omeprazole (Omeprazole) 20 Mg Capsule.dr 20 MG PO DAILY (Reported) Pregabalin (Lyrica) 150 Mg Capsule 150 MG PO HS (Reported) Propranolol HCl (Propranolol HCl) 20 Mg Tablet 20 MG PO QAM (Reported) Rifaximin (Xifaxan) 550 Mg Tablet 550 MG PO BID (Reported) Spironolactone (Spironolactone) 100 Mg Tablet 100 MG PO QAM (Reported) As needed Citalopram Hydrobromide (Celexa) 40 Mg Tablet 40 MG PO DAILY PRN PRN For Anxiety (Reported) Hydroxyzine Pamoate (HydrOXYzine Pamoate) 25 Mg Capsule 25 MG PO QID PRN PRN For Itching (Reported) Insulin Aspart (NovoLOG U100 Insulin Vial) 100 Unit/Ml Mdv 0-13 UNITS SUBQ TIDWM PRN PRN sliding scale (Reported) Oxycodone ER (Oxycontin) 10 Mg Tab.er.12h 10 MG PO Q12 PRN PRN For Pain ( Reported) Triamcinolone Acetonide (Triamcinolone Acetonide Ointment) 15 Gm Oint...g. 1 APPLIC TRANSDERM BID PRN PRN rash (Reported) Attending Statement The patient was seen and examined together with Dr. Zuleta on 06/23/2016 and I agree with the history, exam and findings as noted above. Pt has . CORINA ZULETA DO Jun 23, 2016 19:49 Eric Curtis MD Jun 24, 2016 09:28
== END 2016-06-23 13:30 | disposition expired | DRG 183 ==
LOC: SED 01:34 → MPC 04:30 → OBSVTOIN 04:30 → MPC 05:07
PROVIDERS: ADMIT Specialist; ATTEND Specialist
DX: S22.41XA Multiple fractures of ribs, right side, initial encounter for closed fracture (principal); G93.40 Encephalopathy, unspecified; R40.2122 Coma scale, eyes open, to pain, at arrival to emergency department; N39.0 Urinary tract infection, site not specified; E87.2 Acidosis; E87.0 Hyperosmolality and hypernatremia; K70.30 Alcoholic cirrhosis of liver without ascites; S00.93XA Contusion of unspecified part of head, initial encounter; R40.2352 Coma scale, best motor response, localizes pain, at arrival to emergency department; E11.65 Type 2 diabetes mellitus with hyperglycemia; R40.2242 Coma scale, best verbal response, confused conversation, at arrival to emergency department; D69.6 Thrombocytopenia, unspecified; K72.90 Hepatic failure, unspecified without coma; W10.9XXA Fall (on) (from) unspecified stairs and steps, initial encounter; Y92.009 Unspecified place in unspecified non-institutional (private) residence as the place of occurrence of the external cause; Z79.4 Long term (current) use of insulin; E03.9 Hypothyroidism, unspecified; K21.9 Gastro-esophageal reflux disease without esophagitis; B18.2 Chronic viral hepatitis C; F17.200 Nicotine dependence, unspecified, uncomplicated; Z66 Do not resuscitate; F10.10 Alcohol abuse, uncomplicated; Z51.5 Encounter for palliative care